=== PATIENT | male | born 1980 | race Caucasian/White ===

== ENCOUNTER 2019-06-09 14:22 | Emergency (ER) | payer OTHER, SELFPAY ==
[2019-06-09 14:24] VITALS: BP 153/83; PULSE 76; RESP 17; TEMP 36.7; O2SAT 98; BMI 31.9
--- NOTE | 2019-06-09 14:43 | US_ITS ---
STUDY: SCROTUM ULTRASOUND REASON FOR EXAM: Male, 38 years old. Right testicular pain TECHNIQUE: Ultrasound evaluation of the scrotum was performed with color Doppler and static thomas-scale imaging. COMPARISON: None. FINDINGS: RIGHT TESTICLE INTRATESTICULAR: There is a normal size of the right testicle. The right testicle measures 4.6 x 3.2 x 2.6 cm. There is a homogenous echotexture. There is normal arterial and normal venous vascularity. There is no demonstrated right testicular mass or cyst. EXTRATESTICULAR: The epididymis is normal in size. The epididymis head measures 1.3 x 0.8 cm. There is normal vascularity of the epididymis. There is a 4 mm right epididymal cyst. There is a small complex right hydrocele. There are prominent extratesticular veins consistent with a varicocele. There is no demonstrated extratesticular mass or cyst. LEFT TESTICLE INTRATESTICULAR: There is a normal size of the left testicle. The left testicle measures 4.5 x 2.9 x 2 point cm. There is a homogenous echotexture. There is normal arterial and normal venous vascularity. There is no demonstrated left testicular mass or cyst. EXTRATESTICULAR: The epididymis is normal in size. The epididymis head measures 1.1 x 1.0 cm. There is normal vascularity of the epididymis. There is a 2 mm left epididymal cyst. There is small complex left hydrocele. There are prominent extratesticular veins consistent with a varicocele. There is no demonstrated extratesticular mass or cyst. US/Testicular with Arterial Flow IMPRESSION: Normal bilateral testicles with normal Doppler flow. Small complex hydroceles bilaterally. Bilateral subcentimeter epididymal cysts. Bilateral varicoceles. Electronically Signed: Basilio Ojeda, at 16:13 EST Tel , Service support ,
[2019-06-09 14:50] VITALS: RESP 18
[2019-06-09] MEDS: Ketorolac 60 MG/2 ML Vial IM (14:53)
--- NOTE | 2019-06-09 16:32 | ED.VISSUMM ---
- ER Visit Summary Date of Service: 06/09/19 Chief Complaint: Right testicle pain History of Present Illness: The patient is a 38 M with no primary care physician. He moved here 1 month ago. He reports he has right testicle pain that began 2 months ago. Is a throbbing pain is 10-10 at worst out of 10 currently. Is worsened by standing or laying on his left side. Is relieved by sitting. He reports that he is and is sexually active, but reports he has not had sex for the past 2 months because the pain is so severe. He denies any penile discharge. No dysuria or frequency. Physical Examination: Vitals: Stable. Afebrile. General: Well-nourished and well-developed. Head: Normocephalic atraumatic. Neck: Supple, no lymphadenopathy. No JVD. Nontender. Cardiovascular: Regular rate and rhythm. No murmurs. Respiratory: No respiratory distress. Clear to auscultation bilaterally. Abdominal: Soft, nontender, nondistended, normal bowel sounds. No guarding, rebound, or peritoneal signs. : Normal uncircumcised male. He has moderate tenderness palpation to the epididymis. Small inguinal hernia on the right. No hernia on the left. He was examined while standing. Back: Nontender. Extremities: Nontender, no edema. Skin: Normal color, no rash. Neurologic: Alert and oriented ?3. Cranial nerves II through XII are intact. Normal strength and sensation. Psych: Normal affect. Test Results: Clinical Impression(s) from Imaging Studies Testicular Ultrasound 06/09/19 14:43 IMPRESSION: Normal bilateral testicles with normal Doppler flow. Small complex hydroceles bilaterally. Bilateral subcentimeter epididymal cysts. Bilateral varicoceles. Electronically Signed: Basilio Ojeda, at 16:13 EST Tel , Service support , Emergency Department Course and Treatment: Patient was given a shot of Toradol IM. He is resting comfortably. Treatment Plan: Patient will be discharged with instructions to wear supportive undergarments, take naproxen and ice the area. Follow-up with Dr. Lopez in 1 to 2 weeks if not improving. He is instructed to follow-up Dr. Sunny Arreola in 10 to 14 days for the inguinal hernia. He is also instructed to follow-up with Dr. Zaki Arreola speeder machine operator primary care physician. Return to the emergency department for any worsening symptoms. Disposition: To home in improved and stable condition. Impression: 1. Right testicle pain. This note was generated with [employer] dictation software. It may contain incorrect words, spelling, and punctuation that were not noted in review of the chart prior to signing ED Disposition - Plan for ED Patient: Disposition: Home or Assisted Living Instructions: HERNIA (Inguinal, Ventral, Umbilical), Varicocele Prescriptions: Naproxen [Naprosyn] 500 mg PO BID #20 tab Transmission Status: Received by [facility] Referrals: Sunny Arreola MD [STAFF PHYSICIAN] - 1-2 Weeks Vishal Lopez MD [STAFF PHYSICIAN] - 10-14 Days if not better Zaki Arreola III, MD [STAFF PHYSICIAN] - As Needed
== END 2019-06-09 16:48 | disposition home or self-care (01) ==
PROVIDERS: Emergency Provider Emergency Medicine
DX: N50.811 Right testicular pain (principal); I86.1 Scrotal varices; N43.3 Hydrocele, unspecified; N50.3 Cyst of epididymis; K40.90 Unilateral inguinal hernia, without obstruction or gangrene, not specified as recurrent
CPT/HCPCS: 76870; 93976; 96372; 99283

== ENCOUNTER → 2019-12-28 11:56 | Outpatient (CLI) | payer OTHER, SELFPAY ==
--- NOTE | 2019-12-28 12:00 | RAD_ITS ---
STUDY: X-RAY CHEST REASON FOR EXAM: Male, 39 years old. 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 COMPARISON: None. FINDINGS: The lungs are clear and expanded. There is no demonstrated pleural abnormality. Normal size heart. Normal mediastinum and anika. Normal visualized pulmonary arteries. Normal visualized aortic arch and descending thoracic aorta. Normal visualized thoracic spine. Normal visualized ribs, clavicles, and shoulders. There is no demonstrated abnormality of the visualized soft tissue structures of the upper abdomen. RAD/Chest PA and Lateral IMPRESSION: Normal x-ray examination of the chest. Electronically Signed: Juwan Sanchez MD at 17:13 EDT Tel , Service support ,
[2019-12-28 17:38] LABS: Anion Gap 4 (5-15); BUN 14 mg/dL (7-18); BUN/Creat Ratio 12.1 RATIO (10-20); Calcium,Total 9.2 mg/dL (8.5-10.1); Chloride 106 mmol/L (98-107); Cholesterol 183 mg/dL (200); Creatinine, Serum 1.16 mg/dL (0.70-1.30); EST Glomerular Filtration Rate 74 mL/min (>60); Est Glom Filt Rate - Afr Amer 89 mL/min (>60); Glucose 85 mg/dL (74-106); High Density Lipoprotein 36 mg/dL; Potassium 4.3 mmol/L (3.5-5.1); Sodium Level 138 mmol/L (136-145); Triglycerides 151 mg/dL; Very Low Density Lipoprotein 30 mg/dL (5-40)
== END ==
PROVIDERS: PCP Family Medicine; Referring Provider Family Medicine; Visit Provider Family Medicine
DX: R05 Cough (principal); Z13.1 Encounter for screening for diabetes mellitus; Z13.220 Encounter for screening for lipoid disorders
CPT/HCPCS: 36415; 71046; 80048; 80061

== ENCOUNTER → 2020-02-10 12:03 | Outpatient (CLI) | payer OTHER, SELFPAY ==
--- NOTE | 2020-02-10 12:30 | RAD_ITS ---
STUDY: X-RAY - PELVIS AND LEFT HIP REASON FOR EXAM: Male, 39 years old. SCIATIC PAIN BILATERAL LEGS, HX OF LUMBAR LAMINECTOMY AND CHRONIC LOW BACK PAIN TECHNIQUE: 3 views of the pelvis and hip. COMPARISON: None. FINDINGS: There is a non-specific bowel gas pattern. There are calcified phleboliths. Normal bilateral iliac wings, sacroiliac joints and visualized sacrum. Normal bilateral superior and inferior pubic rami. Normal pubic symphysis. Normal bilateral ischial tuberosities. Normal visualized femoral head. Normal acetabulum. Normal hip joint. Prior laminectomy in the lower lumbar spine. RAD/HIP, UNI W/ Pelvis 2-3 Views IMPRESSION: No acute abnormalities. Electronically Signed: Eloy Armstrong, at 12:38 EDT , Service support ,
== END ==
PROVIDERS: PCP Family Medicine; Visit Provider Nurse Practitioner Family
DX: M46.96 Unspecified inflammatory spondylopathy, lumbar region (principal); M51.17 Intervertebral disc disorders with radiculopathy, lumbosacral region; M47.27 Other spondylosis with radiculopathy, lumbosacral region; M96.1 Postlaminectomy syndrome, not elsewhere classified; M48.07 Spinal stenosis, lumbosacral region
CPT/HCPCS: 73502

== ENCOUNTER 2020-05-02 16:01 | Emergency (ER) | payer OTHER, SELFPAY ==
[2020-05-02 16:02] VITALS: BP 150/93; PULSE 83; RESP 16; TEMP 35.7; O2SAT 99; BMI 31.8
--- NOTE | 2020-05-02 16:46 | ED.VISSUMM ---
- ER Visit Summary Date of Service: 05/02/20 Chief Complaint: Lump in left axilla History of Present Illness: The patient is a 39 M who presents with a painful lump in his left axilla for the past 2 weeks. Patient states it is gradually gotten worse. Patient denies any redness. Patient states his pain is constant dull and throbbing but is sharp whenever he adducts his left shoulder. Patient states it is better whenever he abducts his left shoulder. Patient admits to an episode of subjective chills and shaking last night. Patient denies any fevers. Patient states the pain does radiate into his left pectoral area. Patient denies any shortness of breath. Patient denies any nausea or vomiting. Patient denies any other symptoms. Physical Examination: Vital signs are stable. Patient is afebrile. Patient is in no acute distress. There is some tenderness over the left axilla. There is tender left axillary adenopathy. There is no erythema. There is no fluctuance. There is no discharge or drainage. There is good range of motion of the left shoulder. Radial pulses are equal bilaterally. There are no sensory deficits noted. Heart was regular rate and rhythm. Lungs are clear and equal bilaterally. Cranial nerves II through XII are intact. There are no focal motor or sensory deficits. Emergency Department Course and Treatment: There is no evidence of any abscess formation that needs incision and drainage at this time. Patient was advised that this is most likely lymphadenitis. Patient was given a prescription for Keflex. Patient was instructed to follow-up with his primary care physician in 5 to 7 days. Patient was instructed to continue Tylenol or ibuprofen as needed for pain. Patient understood and was agreeable with the plan. All questions were answered. Disposition: Discharge home Impression: 1. Left axillary lymphadenitis This note was generated with [employer] dictation software. It may contain incorrect words, spelling, and punctuation that were not noted in review of the chart prior to signing ED Disposition - Plan for ED Patient: Disposition: Home or Assisted Living Diagnosis: Axillary lymphadenitis Instructions: ED ADENITIS Cervical Abx Tx Prescriptions: Cephalexin [Keflex] 500 mg PO Q6 #40 cap Prescription Printed Referrals: Feliciano Crowell MD [Primary Care Provider] - 5-7 Days
[2020-05-02 17:35] VITALS: RESP 17
== END 2020-05-02 17:36 | disposition home or self-care (01) ==
LOC: ED 17:11
PROVIDERS: Emergency Provider Emergency Medicine; PCP Family Medicine
DX: I88.9 Nonspecific lymphadenitis, unspecified (principal)
CPT/HCPCS: 99282

== ENCOUNTER 2020-05-06 16:37 | Emergency (ER) | payer OTHER, SELFPAY ==
[2020-05-06 16:38] VITALS: BP 146/66; PULSE 91; RESP 16; TEMP 37.1; O2SAT 98; BMI 31.9
--- NOTE | 2020-05-06 17:17 | ED.DCSUM_ITS ---
- ER Visit Summary Date of Service: 05/06/20 Chief Complaint: Left arm pain History of Present Illness: The patient is a [address] Crowell. Patient reports that proximately 3 weeks ago he noticed a small wound to his left wrist. He does not know any trauma. He does not believe that there is a foreign body present. He was seen in the emergency department 3 days ago for a swelling in his axilla and was placed on Keflex. He reports that swelling has improved. 2 days ago patient reports that he had approximately a tablespoon of pus drained from his wrist. No foreign body returned and his pain resolved. That area is much improved. However, states that over the past 2 days he now is experiencing pain in the medial left forearm and arm that radiates up into his axilla and into the left chest. He has had chills, but no fever. He reports that arm feels weaker than the other side. Physical Examination: Vitals: Stable. Afebrile. General: Well-nourished and well-developed. Head: Normocephalic atraumatic. Neck: Supple, no lymphadenopathy. No JVD. Nontender. Cardiovascular: Regular rate and rhythm. No murmurs. Respiratory: No respiratory distress. Clear to auscultation bilaterally. Abdominal: Soft, nontender, nondistended, normal bowel sounds. No guarding, rebound, or peritoneal signs. Back: Nontender. Extremities: 2 mm wound to the anterior side of his left wrist with no induration or fluctuance. There is minimal erythema. There is minimal tenderness to palpation. He does have mild tenderness palpation that extends proximally up into his axilla. There is no lymphangitic spread. There is no erythema or induration here. He has a 2 cm palpable freely mobile lymph node in his left axilla that is moderately tender to palpation. Again there is no erythema, induration, or fluctuance here. Skin: Normal color, no rash. Neurologic: Alert and oriented ?3. Cranial nerves II through XII are intact. Normal strength and sensation. Psych: Normal affect. Test Results: CBC is normal. Chem-7 is normal. Emergency Department Course and Treatment: I had a prolonged discussion with the patient that I suspect that the infection that he had in his wrist draining is the reason that his pain there has improved and that his lymphadenopathy is improved. However, given that pus drained from this it is most likely MRSA and not covered by Keflex. He had an IV placed and was given a dose of vancomycin IV. He refused pain medications. Treatment Plan: Patient will be discharged on doxycycline. Given a prescription for 10 [place] for pain. Follow-up his primary care physician in 3 to 5 days for another exam. Return to the emergency department for any worsening symptoms. Disposition: To home in improved and stable condition. Impression: 1. Left wrist abscess, drained spontaneously. 2. Left axillary lymphadenopathy. This note was generated with [employer] dictation software. It may contain incorrect words, spelling, and punctuation that were not noted in review of the chart prior to signing ED Disposition - Plan for ED Patient: Instructions: ED Abscess Antibiotic Treatment Only Prescriptions: Doxycycline 100 mg PO BID #14 capsule Hydrocodone Bitart/Apap 5-325 [[place] 5MG-325MG] 1 tablet PO Q4H PRN PRN 2 Days #10 tablet PRN Reason: Pain Referrals: Feliciano Crowell MD [Primary Care Provider] - 3-5 Days
[2020-05-06 17:39] LABS: Basophil# 0.07 X10^3/uL; Eosinophil# 0.13 X10^3/uL; Eosinophils% 1.8 % (0-5); Hematocrit 40.5 % (40-54); Lymphocyte % 31.9 % (19-41); Mean Corp Hgb Conc 34.6 g/dL (32-36); Mean Corpuscular Hgb 29.6 pg (27.0-32.0); Mean Corpuscular Volume 85.6 fL (80-94); Mean Platelet Vol. 8.7 fl (6.2-12.0); Monocyte% 9.7 % (0-10); NRBC Flagged by Analyzer 0 % (0-5); Neutrophil # 3.98 X10^3/uL (2.7-7.7); Platelet Count 231 K/mm3 (150-450); RBC Distribution Width CV 12.1 % (11.6-14.6); RBC Distribution Width SD 37.5 fl (35.1-43.9); Red Blood Count 4.73 M/mm3 (4.6-6.2); White Blood Count 7.2 K/mm3 (4.4-11.0)
[2020-05-06 17:52] LABS: Anion Gap 5 (5-15); BUN 11 mg/dL (7-18); BUN/Creat Ratio 9.7 RATIO (10-20); Calcium,Total 8.6 mg/dL (8.5-10.1); Chloride 103 mmol/L (98-107); Creatinine, Serum 1.13 mg/dL (0.70-1.30); EST Glomerular Filtration Rate 76 mL/min (>60); Est Glom Filt Rate - Afr Amer 92 mL/min (>60); Estimated Creatinine Clearance 77.63 ml/min; Glucose 82 mg/dL (74-106); Potassium 4.3 mmol/L (3.5-5.1); Sodium Level 137 mmol/L (136-145)
[2020-05-06 18:38] VITALS: BP 147/83; PULSE 85; RESP 17; O2SAT 98
== END 2020-05-06 19:59 | disposition home or self-care (01) ==
PROVIDERS: Emergency Provider Emergency Medicine; PCP Family Medicine
DX: L02.414 Cutaneous abscess of left upper limb (principal); R59.0 Localized enlarged lymph nodes
CPT/HCPCS: 80048; 85025; 87040; 96365; 96366; 99283; J7050; A4216

== ENCOUNTER → 2020-05-10 10:51 | Outpatient (CLI) | payer OTHER, SELFPAY ==
[2020-05-06 16:38] VITALS: BMI 31.9
--- NOTE | 2020-05-10 10:55 | CT_ITS ---
STUDY: CT CHEST WITH CONTRAST REASON FOR EXAM: Male, 39 years old. LEFT AXILLARY LYMPHADENITIS X THREE WEEKS WITH BURNING DOWN ARM RADIATION DOSAGE (If Supplied By Facility): CTDIvol = ( 14.62 ) mGy, DLP = ( 636.55 ) mGycm TECHNIQUE: Transaxial imaging was performed following intravenous administration of 100 ML ISOVUE 300. Multiplanar coronal and sagittal images were reformatted. Individualized dose optimization techniques were used for this CT. COMPARISON: None. FINDINGS: There is a dominant 3 cm x 3.1 cm lymph node in the left axillary region corresponding to the palpable abnormality. Increased markings are seen surrounding the lymph nodes suggestive of possible inflammatory changes. There are several smaller lymph nodes in the left axillary region as well. Mild degree of dependent bibasilar atelectasis. There is no demonstrated pleural abnormality. Normal heart and pericardium. Normal mediastinum. Normal hilar regions. Normal enhanced pulmonary arteries. Normal aorta arch and descending thoracic aorta. There are degenerative changes of the thoracic spine. Small hiatal hernia. CT/Chest WITH Contrast IMPRESSION: Left axillary adenopathy with a dominant lymph node measuring 3 cm by 3.1 cm. Increased markings are seen surrounding the dominant lymph node suggestive of possible inflammatory causes. Electronically Signed: Eloy Armstrong, at 11:29 EST , Service support ,
== END ==
PROVIDERS: PCP Family Medicine; Referring Provider Family Medicine; Visit Provider Family Medicine
DX: I88.9 Nonspecific lymphadenitis, unspecified (principal)
CPT/HCPCS: 71260; Q9967

== ENCOUNTER → 2020-05-15 08:05 | Outpatient (CLI) | payer OTHER, SELFPAY ==
[2020-05-15] VITALS (9 sets, daily range): BP systolic 106–124; BP diastolic 71–81; PULSE 65–72; RESP 12–19; TEMP 36.9; O2SAT 92–99; BMI 31.9
--- NOTE | 2020-05-15 | IMM_PTH ---
PATIENT: SYLVIA AUSTIN LOC: CT U#:[id number] AGE/SX: 44/M ROOM: RE05/15/[address]: Dr. Damon Leroy MD : 1980 BED: DIS: SPEC #: [id number] RECD: 05/16/20 09:47 STATUS: MALINA REQ #: [id number] S[place]: 05/15/20 00:[address]: Damon Leroy DEPT: IMMUNOHISTOCHEMISTRY RECD BY: Ioana Deshpande ENTERED: 05/16/20 09:49 SP TYPE: IMMUNO OTHR DR: MD Dr. Feliciano Schroeder MD Tissues: Axilla, NOS Procedures: BCL-2 (add) BCL-6 (add) CD10 (add) CD20 (add) CD23 (add) CD43 (add) CD45 (add) CD5 (add) CD79A (add) CK8 (add) CYCLIN (add) KI-67 (add) Pankeratin (add) CD3 (initial) PHYSICIAN & [place] [phone] SPECIMEN INFORMATION: Tissue Source: Left axilla mass Clinical Info: Left axilla mass Specimen Number: [id number] CPT code: 86400, 82560 x13 METHODOLOGY: Deparaffinized sections of prefer/formalin-fixed tissue or PAP/DQ stained slides are incubated with monoclonal/polyclonal antibodies/oligonucleotide probes. Localization is made via biotin free immunoperoxidase method. Appropriate controls are performed and reacted as expected. Results on target cell population are indicated in the following table: RESULTS: ANTIBODY / CLONE RESULT CD3 (PS1) positive CD5 (SP10) positive CD20 (L26) positive CD43 (L60) positive CD45 (RP2/18) positive CD79a (11E3) positive CD10 (56C6) positive (germinal center) CD23 (1B12) positive (germinal center) BCL-2 (bcl-2/100/D5) positive (germinal center) BCL-6 (YH933I/A8) positive (germinal center) Cyclin D1/BCL-1 (SP4) negative Ki-67 (30-9) positive, low (high in germinal center) AE1-3 (AE1/AE3/PCK26) negative CK8 (12edgnT13) negative These tests were developed and their performance characteristics determined by [facility]. They may not have been cleared or approved by the U.S. Food and Drug Administration. The FDA has determined that such clearance or approval is not necessary. The above immunohistochemical/dualISH markers are ordered and reviewed by the Pathologist. INTERPRETATION: Left axilla mass, CT-guided biopsy: Benign lymph node tissue negative for lymphoma. Negative for malignancy SJ:spencer 05/17/2020
[2020-05-15 08:33] LABS: International Normalized Ratio 1.3; Prothrombin Time (Protime)PT. 15.9 SECONDS (11.7-14.9)
[2020-05-15 08:34] LABS: Partial Thromboplast Time 30.3 Seconds (24.1-36.2)
--- NOTE | 2020-05-15 09:14 | CT_ITS ---
PROCEDURE: CT GUIDED biopsy of a left axillary lymph node. DATE: 05/15/2020. INDICATION: Male, 39 years old. Painful left axillary lymphadenopathy. PHYSICIAN: Eloy Armstrong M.D. RADIATION DOSAGE (If Supplied By Facility): CTDIvol = ( 18 ) mGy, DLP = ( 597.91 ) mGycm. Individualized dose optimization techniques were utilized. PROCEDURE: The risks, benefits, and alternatives to the procedure were explained to the patient. The specific risk of hemorrhage requiring further treatment or intervention was detailed and accepted. Follow-up instructions were discussed with the patient as well. Written informed consent was obtained. The patient was brought into the CT suite and placed in the supine position. . An appropriate entry site was identified. The overlying skin was prepped and draped in the usual sterile fashion. 1% lidocaine was administered subcutaneously for local anesthesia. Conscious sedation was performed. The patient received 2 mg of VERSED and 50 mcg of FENTANYL intravenously. Conscious sedation started at 9:24 AM and terminated at 9:46 AM. The patient was independently monitored by department nurse. Under CT guidance, a total of 5 passes were performed utilizing a 18-gauge core biopsy needle system. 6 cc of blood-tinged purulent material was aspirated. The specimens were then placed in the appropriate fluid and transported to the laboratory for analysis. Hemostasis was obtained. The patient tolerated the procedure well without immediate complications. CT/Biopsy/Inj or Needle Placement IMPRESSION: Successful CT guided biopsy of the left axillary lymph node, as described above. Conscious sedation protocol was followed. Electronically Signed: Eloy Armstrong MD at 10:03 EST , Service support ,
[2020-05-15] MEDS: Midazolam 2 MG/2 ML Syringe IV (09:23)
[2020-05-15] MEDS: fentaNYL 100 MCG/2 ML Ampul IV (09:24)
--- NOTE | 2020-05-15 09:40 | FLU_PTH ---
PATIENT: SYLVIA AUSTIN LOC: [place] U#:[id number] AGE/SX: 44/M ROOM: RE05/15/[address]: Dr. Damon Leroy MD : 1980 BED: DIS: SPEC #: [id number] RECD: 05/15/20 10:30 STATUS: MALINA REQ #: [id number] [place]: 05/15/20 09:[address]: Damon Leroy DEPT: CYTOLOGY RECD BY: Arminda Bell ENTERED: 05/15/20 12:31 SP TYPE: Fluid OTHR DR: MD Dr. Feliciano Schroeder MD Tissues: Lymph node, NOS Procedures: Special Stain Group II Special Stain Group I Surgery Specimen Level IV AFB Stain (control) GMS Stain (control) Cytospin Fluid HEADER OPERATION: CT-guided biopsy left axilla PRE-OP DIAGNOSIS: Left axilla mass TISSUE SUBMITTED: Left axilla mass fluid for cytology, 18-gauge DIAGNOSIS CYTOLOGY Left axilla mass fluid, CT-guided aspiration (cytospin and cell block): Acute inflammation, consistent with abscess formation. Special stains for acid fast bacilli and fungi are negative for organisms; matched controls are appropriate. See comment. DAVE:spencer 05/16/20 COMMENT Please make reference to corresponding surgical specimen ([id number]) left axilla mass, CT-guided core biopsy with diagnosis of lymph node tissue, negative for lymphoma or malignancy and focal area suggestive of granuloma formation. Case has been reviewed in consultation with Dr. Balderas who concurs with the above diagnosis. IDC:AM CYTOLOGY STUDY Slides are reviewed. CYTOLOGY GROSS Received is 3 ml of red-briggs thick, mucoidy fluid labeled with the patient's name and and designated per the requisition as left axilla mass. Submitted for cytology preparation including cell block. / spencer 05/15/2020 TC:2 CPT: 37421, 97652
--- NOTE | 2020-05-15 09:40 | ASPIGT_PTH ---
PATIENT: SYLVIA AUSTIN LOC: [place] U#:[id number] AGE/SX: 44/M ROOM: RE05/15/[address]: Dr. Damon Leroy MD : 1980 BED: DIS: SPEC #: [id number] RECD: 05/15/20 10:30 STATUS: MALINA REQ #: [id number] [place]: 05/15/20 09:[address]: Damon Leroy DEPT: SURGICAL PATHOLOGY RECD BY: Arminda Bell ENTERED: 05/15/20 12:29 SP TYPE: ASP RAD OTHR DR: MD Dr. Feliciano Schroeder MD Tissues: Lymph node, NOS Procedures: FNA Specimen Adequacy Special Stain Group II Surgery Specimen Level IV Imprint (control) HEADER OPERATION: CT-guided biopsy, left axilla PRE-OP DIAGNOSIS: Left axilla mass TISSUE SUBMITTED: Left axilla mass, 18 gauge MICROSCOPIC DIAGNOSIS Left axilla mass, CT-guided core biopsy: Lymph node tissue, negative for lymphoma or malignancy. Focal area suggestive of granuloma formation. Special stains for acid fast bacilli and fungi are negative for organisms; matched controls are appropriate. Flow cytometry studies from [facility] shows no evidence of a B-cell or T-cell lymphoma. Please see complete report in patient's EMR. See comment. SJ:spencer 05/17/2020 COMMENT The specimen is evaluated at the time of biopsy by Dr. Urrutia. Immediate Evaluation = Lymphocytes are noted. Immunohistochemistry ([id number]) supports the above diagnosis. Please also make reference to corresponding cytology specimen ([id number]), left axilla mass fluid with diagnosis of acute inflammation, consistent with abscess formation. Case has been reviewed in consultation with Dr. Balderas who concurs with the above diagnosis. IDC:AM MICROSCOPIC DESCRIPTION Slides are reviewed. GROSS DESCRIPTION Received in fixative is one container labeled with the patient's name and designated left axilla mass, CT-guided core biopsy. The specimen consists of multiple irregular fragments of briggs soft tissue that in aggregate measure 1 x 0.3 x 0.1 cm. The specimen is totally submitted in one cassette. One core is submitted for flow cytometry studies. One touch imprint is prepared at the time of core biopsy. / DAVE:spencer 05/15/20 TC:5 CPT: 23972, 76105, 29479 x2
== END ==
PROVIDERS: PCP Family Medicine; Referring Provider Surgery; Visit Provider Surgery
DX: R22.32 Localized swelling, mass and lump, left upper limb (principal)
CPT/HCPCS: 38505; 36415; 77012; 85610; 85730; 87070; 87075; 87205; 88108; 88161; 88172; 88305; 88312; 88313; 88341; 88342; 99155; 99156; J7040; A4216

== ENCOUNTER 2021-06-28 12:49 | Outpatient (CLI) | payer OTHER, SELFPAY ==
--- NOTE | 2021-06-28 12:53 | RAD_ITS ---
STUDY: X-RAY - LEFT HAND REASON FOR EXAM: Male, 40 years old. Pain. Injury to the hand 3 weeks ago. Persistent pain in the region of the second third metacarpals. TECHNIQUE: 3 view(s) of the hand. COMPARISON: None. FINDINGS: Normal radiocarpal articulation. Normal distal radioulnar joint. Normal visualized carpal bones. Normal carpal articulations Normal carpometacarpal articulation of the thumb. Normal second through fifth carpometacarpal joints. Normal metacarpi. Normal metacarpophalangeal joint of the thumb. Normal interphalangeal joint of the thumb. Normal proximal and distal phalanges of the thumb. Normal metacarpophalangeal joints of the second through fifth fingers. Normal proximal and distal interphalangeal joints of the second through fifth fingers. Normal phalanges of the second through fifth fingers. The soft tissue structures are unremarkable. RAD/Hand Min 3 Views IMPRESSION: No fracture or dislocation. There is no marked arthritic change. Electronically Signed: Addison Arroyo DO at 16:14 EST ,
== END 2021-06-28 23:59 | disposition home or self-care (01) ==
LOC: MTRAD 12:51
PROVIDERS: Referring Provider Family Medicine; Visit Provider Family Medicine
DX: M79.642 Pain in left hand (principal)
CPT/HCPCS: 73130

== ENCOUNTER 2021-07-08 15:49 | Emergency (ER) | payer OTHER, SELFPAY ==
[2021-07-08 15:50] VITALS: BP 155/102; PULSE 89; RESP 16; TEMP 35.9; O2SAT 97; BMI 31.0
--- NOTE | 2021-07-08 16:26 | RAD_ITS ---
HISTORY: injury. TECHNIQUE: XR Foot Min 3 Views. Number of images including paperwork: 3. COMPARISON: None. FINDINGS: OSSEOUS STRUCTURES: No acute fracture. Mineralization unremarkable. Tiny plantar calcaneal spur present. JOINT SPACES: Maintained. No dislocation. RAD/Foot min 3 Views IMPRESSION: No acute fracture or dislocation identified in the left foot. at 1654 Reported and signed by: Cee Rodriguez MD Electronically Signed: Cee Rodriguez MD at 16:53 EDT ,
--- NOTE | 2021-07-08 16:27 | ED.VIS.LOWEX ---
HPI History of Present Illness Chief Complaint: Lower Extremity Injury Informant: patient Onset/Context/Timing Onset: Hours (1) Context: Sudden Onset Timing: Continuous Quality of Pain: Throbbing Location: Left ankle Current Severity: Moderate Maximum Severity: Severe Worsened by: Walking Relieved by: Remaining still Associated Symptoms Associated Symptoms: Negative for Parasthesia, Weakness and Loss of Funtion Narrative Narrative: Patient states he was going down a step and accidentally rolled his foot, he describes an inversion/hyper plantarflexion injury, pain is at the lateral aspect of the left ankle. Able to walk but hobbling with pain. [facility] Medical History Axillary lymphadenitis History of back problems Mass of left axilla Allergy/AdvReac Type Severity Reaction Status Date / Time No Known Allergies Allergy Verified 07/08/21 15:50 Family History Mother Asthma Father Diabetes Surgical History history o axillary biopsy (~04/2020) History of spinal surgery Social History Smoking Status: Never smoker ROS ROS ED Constitutional Constitutional ED: Denies chills or fever(s) Musculoskeletal Musculoskeletal: Reports extremity pain; Denies neck pain Integumentary Denies Abrasions, rash or wounds Neurologic Neurologic: Denies paresthesias or weakness EXAM Physical Exam Const Vital Signs: 07/08/21 15:50 Temperature 96.7 F L Temperature Source Temporal Pulse Rate 89 Respiratory Rate 16 Blood Pressure 155/102 H Blood Pressure Mean 119 Pulse Ox 97 Oxygen Delivery Method Room Air Positive well nourished and well developed General Appearance ED: well developed and NAD Neck full ROM and supple Back/Spine normal ROM and normal to inspection Extremity full ROM Extremity Narrative: Tenderness and swelling to the left lateral malleolus as well as the base of the fifth tarsal. No other foot tenderness. No medial malleolus tenderness no deformities. No proximal fibular tenderness. Neuro oriented x3, no focal motor deficits and no sensory deficits noted Sensorium / Orientation: alert Psych mental status grossly normal and thought process normal Skin no wounds Skin Narrative: Skin intact left lower extremity Rashes: no rashes MDM MDM MDM Narrative Medical decision making narrative: My interpretation, 3 view x-ray series of the left foot and three-view x-ray series of the left ankle both are negative for any acute fracture or dislocation. Radiology in agreement. Patient treated to sprain, he will be offered Aircast, crutches, anti-inflammatories all if needed. Follow-up advised. Radiography Diagnostic Testing: Clinical Impression(s) from Imaging Studies Foot X-Ray 07/08/21 16:26 IMPRESSION: No acute fracture or dislocation identified in the left foot. at 1654 Reported and signed by: Cee Rodriguez MD Electronically Signed: Cee Rodriguez MD at 16:53 EDT , Ankle X-Ray 07/08/21 16:35 IMPRESSION: No acute fracture or dislocation identified in the left ankle. at 1653 Reported and signed by: Cee Rodriguez MD Electronically Signed: Cee Rodriguez MD at 16:52 EDT , Discharge Plan Triage Chief Complaint: Lower Extremity Injury ED Provider: Gen Diaz Dx/Rx/DC Orders Clinical Impression: Left ankle sprain Instructions: ED Ankle Sprain (Adult) Primary Care Provider: Care Physician,No Primary Referrals: Doctor,Your [STAFF PHYSICIAN] - 10-14 Days if not better Disposition Disposition: Home, Self Care
--- NOTE | 2021-07-08 16:35 | RAD_ITS ---
HISTORY: injury. TECHNIQUE: XR Ankle Min 3 Views. Number of images including paperwork: 3. COMPARISON: None. FINDINGS: OSSEOUS STRUCTURES: No acute fracture. Ossification center noted at the fifth metatarsal base. Small spur at the medial malleolus. Smooth talar dome. Mineralization unremarkable. JOINT SPACES: Ankle mortise maintained. No dislocation. SOFT TISSUES: Diffuse soft tissue swelling with mild joint effusion. RAD/Ankle min 3 Views IMPRESSION: No acute fracture or dislocation identified in the left ankle. at 1653 Reported and signed by: Cee Rodriguez MD Electronically Signed: Cee Rodriguez MD at 16:52 EDT ,
[2021-07-08] MEDS: Naproxen 250 MG Tablet 500 MG PO (17:16)
[2021-07-08] MEDS: traMADol 50 MG Tablet 100 MG PO (17:16)
[2021-07-08 17:23] VITALS: RESP 16
== END 2021-07-08 17:23 | disposition home or self-care (01) ==
PROVIDERS: Emergency Provider Emergency Medicine; Visit Provider Emergency Medicine
DX: S93.402A Sprain of unspecified ligament of left ankle, initial encounter (principal); X50.1XXA Overexertion from prolonged static or awkward postures, initial encounter; Y93.9 Activity, unspecified; Y92.9 Unspecified place or not applicable
CPT/HCPCS: 73610; 73630; 99284

== ENCOUNTER → 2021-12-10 | Outpatient (CLI) | payer OTHER, SELFPAY ==
--- NOTE | 2021-12-10 14:16 | RAD_ITS ---
STUDY: X-RAY - RIGHT ELBOW REASON FOR EXAM: Male, 41 years old. INJRY TECHNIQUE: 3 view(s) of the elbow. COMPARISON: None. FINDINGS: Normal visualized humerus, radius and ulna. Normal radiocapitellar and ulnotrochlear articulations. The soft tissue structures are unremarkable. RAD/Elbow min 3 Views IMPRESSION: Normal x-ray examination of the elbow. Electronically Signed: Amilcar Hernandez MD at 14:36 EDT ,
[2021-12-10 17:57] LABS: Absolute Lymphocyte Count 1.81 X10^3/uL (0.83-4.51); Basophil# 0.06 X10^3/uL; Basophil% 0.9 % (0-1); Eosinophil# 0.05 X10^3/uL; Eosinophils% 0.8 % (0-5); Hematocrit 41.4 % (40-54); Lymphocyte # 1.81 X10^3/ul (0.83-4.51); Lymphocyte % 28.6 % (19-41); Mean Corp Hgb Conc 33.8 g/dL (32-36); Mean Corpuscular Hgb 28.7 pg (27.0-32.0); Mean Platelet Vol. 9.4 fl (6.2-12.0); Monocyte# 0.42 X10^3/uL; Monocyte% 6.6 % (0-10); NRBC Flagged by Analyzer 0 % (0-5); Neutrophil # 3.96 X10^3/uL (2.7-7.7); Neutrophil % 62.6 % (47-70); Platelet Count 261 K/mm3 (150-450); Red Blood Count 4.87 M/mm3 (4.6-6.2); White Blood Count 6.3 K/mm3 (4.4-11.0)
[2021-12-10 18:34] LABS: ALB/GLOB Ratio 1.1 RATIO (0.9-2.4); AST(SGOT) 19 U/L (15-37); Alanine Aminotransfer ALT/SGPT 50 U/L (16-61); Albumin, Serum 3.6 g/dL (3.2-5.0); Alkaline Phosphatase 47 U/L (45-117); Anion Gap 6 (5-15); BUN 13 mg/dL (7-18); BUN/Creat Ratio 10.7 RATIO (10-20); Calcium,Total 8.7 mg/dL (8.5-10.1); Chloride 110 mmol/L (98-107); Cholesterol 153 mg/dL (200); Creatinine, Serum 1.21 mg/dL (0.70-1.30); EST Glomerular Filtration Rate 70 mL/min (>60); Est Glom Filt Rate - Afr Amer 84 mL/min (>60); Globulin 3.4 g/dL (2.2-4.2); Glucose 104 mg/dL (74-106); High Density Lipoprotein 32 mg/dL; Potassium 3.7 mmol/L (3.5-5.1); Sodium Level 140 mmol/L (136-145); Thyroid Stim Hormone (TSH) 1.32 uIU/mL (0.358-3.74); Triglycerides 168 mg/dL; Very Low Density Lipoprotein 34 mg/dL (5-40)
[2021-12-10 18:41] LABS: Hemoglobin A1c 5.4 % (3.8-5.6)
== END | disposition home or self-care (01) ==
LOC: MTLAB 14:14
PROVIDERS: PCP Family Medicine; Referring Provider Nurse Practitioner Family; Visit Provider Nurse Practitioner Family
DX: M25.521 Pain in right elbow (principal); R07.89 Other chest pain; E66.9 Obesity, unspecified
CPT/HCPCS: 36415; 73080; 80053; 80061; 83036; 84443; 85025

== ENCOUNTER → 2021-12-17 | Outpatient (CLI) | payer OTHER, SELFPAY ==
--- NOTE | 2021-12-17 17:56 | CT_ITS ---
STUDY: CT ABDOMEN AND PELVIS WITH CONTRAST REASON FOR EXAM: Male, 41 years old. Diffuse abdominal pain RADIATION DOSAGE (If Supplied By Facility): CTDIvol = ( 15.88 ) mGy, DLP = ( 1168.92 ) mGycm TECHNIQUE: Transaxial images were obtained from the dome of the diaphragm to the symphysis pubis with oral contrast. Oral and amp; IV Readi-CAT and amp; 100mL Isovue-370 was administered. Sagittal and coronal images were reconstructed. Individualized dose optimization techniques were used for this CT. COMPARISON: None. FINDINGS: The visualized lung bases are unremarkable. The visualized portions of the heart are within normal limits. There is decreased attenuation of the liver consistent with steatosis. Normal gallbladder and extrahepatic biliary system. Normal spleen. Normal pancreas. Normal bilateral adrenal glands. Normal right kidney. Normal left kidney. Normal visualized stomach. Normal small intestine. There are a few scattered colonic diverticula, no CT evidence of acute diverticulitis. There is non-visualization of the appendix. Normal abdominal aorta. Normal inferior vena cava. Normal retroperitoneum. Normal urinary bladder. Small fat-containing left inguinal hernia. Normal osseous structures. CT/Abdomen/Pelvis WITH Contrast IMPRESSION: Fatty infiltration of the liver, no discrete lesion Scattered colonic diverticula, no CT evidence of acute diverticulitis No free intraperitoneal fluid, air, or suspicious adenopathy Electronically Signed: Abel Fung MD at 8:40 EDT ,
== END | disposition home or self-care (01) ==
LOC: CT 17:54
PROVIDERS: PCP Family Medicine; Visit Provider Surgery
DX: R10.9 Unspecified abdominal pain (principal)
CPT/HCPCS: 74177; Q9967

== ENCOUNTER 2022-01-28 09:09 | Day surgery (SDC) | payer OTHER, SELFPAY ==
[2022-01-28] VITALS (7 sets, daily range): BP systolic 97–136; BP diastolic 71–98; PULSE 75–110; RESP 16; TEMP 36.1–36.5; O2SAT 92–97; BMI 32.3
--- NOTE | 2022-01-28 | HERN_PTH ---
PATIENT: SYLVIA AUSTIN LOC: [facility] U#:[id number] AGE/SX: 41/M ROOM: RE01/28/[address]: Dr. Sunny Arreola MD : 1980 BED: DIS: 01/28/2022 SPEC #: [id number] RECD: 01/28/22 13:58 STATUS: MALINA BOWER #: [id number] [place]: 01/28/22 00:[address]: Sunny Arreola DEPT: SURGICAL PATHOLOGY RECD BY: Rashel Riddle ENTERED: 01/29/22 08:35 SP TYPE: Hernia OTHR DR: Dr. Jose Ramon Blancas MD Tissues: HERNIA Procedures: Surgery Specimen Level II HEADER OPERATION: Laparoscopic inguinal hernia repair with mesh, umbilical hernia repair PRE-OP DIAGNOSIS: Umbilical hernia, left inguinal hernia, gangrene, abdominal pain TISSUE SUBMITTED: Hernia sac MICROSCOPIC DIAGNOSIS Hernia sac, herniorrhaphy: Fibrosis and minimal chronic inflammation. AM:spencer 01/30/2022 MICROSCOPIC DESCRIPTION Slides are reviewed. GROSS DESCRIPTION Received in fixative is one container labeled with the patient's name and designated hernia sac. The specimen consists of a piece of adipose tissue measuring 2.5 x 2.5 x 1 cm. No mass lesion is identified. Flask Pusher sections are submitted in one cassette. / SJ:spencer 01/29/2022 TC:5 [facility]: [id number]
[2022-01-28] MEDS: Lactated Ringers 1,000 ML 15 ML IV (09:54)
--- NOTE | 2022-01-28 10:34 | PCM.HP.BLA ---
History and Physical Date of Admission: 01/28/22 Visit Reasons:?UMBILICAL HERNIA Chief Complaint: umbilical hernia Irrigation Manager Required: No Is patient in pain?: No Allergies No Known Allergies Allergy (Verified 12/10/21 13:13) Medications NK? 12/10/21 [History Confirmed 12/10/21] PFSH Medical History? Axillary lymphadenitis History of back problems Mass of left axilla Surgical History? history o axillary biopsy (~04/2020) History of spinal surgery Family History? Mother AsthmaFather Diabetes Social History? Smoking Status:? Never smoker HPI HPI HPI: SYLVIA AUSTIN, is a 41 M who presents to the office today for surgical consultation regarding an umbilical hernia.? The patient is referred by Dr. Jose Ramon Blancas and a written copy my surgical consult recommendations will return to him.? On clinical examination the patient was felt to have an umbilical hernia potentially aggravating abdominal pain of which he is complaining.? The patient states that he has had his umbilical hernia for at least a year.? He has had intermittent chronic pain of his right proximal scrotal area.? Apparently June 09, 2019 was seen at the [facility] emergency room.? A scrotal ultrasound was obtained demonstrating small complex bilateral hydroceles and small bilateral epididymal cysts and bilateral varicoceles..? He says he was treated with antibiotics.? He still has intermittent right proximal scrotal groin pain.? He is concerned because of left lower quadrant abdominal pain.? He states he can literally see the bowel moving underneath the skin.? He claims that it can bulge out and then receded.? But he points to very high in the left groin area and not down at a typical hernia spot. He states he has GERD for 10 to 15 years.? Some trouble swallowing peanuts.? Claims she had a colonoscopy February 2015.? Does not know whether he had a upper endoscopy at that time.? It is his hernias that are of most interest currently. He has had 3 different operations on his back.? 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 He does not do anything vigorous like that.? No tobacco use and very infrequent alcohol use.? 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 His work requires currently are less vigorous June 09, 2019 US/Testicular with Arterial Flow IMPRESSION: Normal bilateral testicles with normal Doppler flow. ? Small complex hydroceles bilaterally. ? Bilateral subcentimeter epididymal cysts. ? Bilateral varicoceles. ROS General General: No weight change, appetite, fatigue, colon cancer, breast cancer or weakness HEENT HEENT: No difficulty swallowing, eye injury, eye surgery, swollen glands or hoarseness Endo Endocrine: No thyroid disease, diabetes mellitus, thyroid cancer, Hair loss, heat intolerance or cold intolerance Skin Skin: No rash or changing moles Breast Breast: No left breast lump, right breast lump, nipple discharge, breast pain, abnormal mammogram, abnormal US or breast enlargement Musc Musculoskeletal: Yes back problems; No arthritis, rheumatoid arthritis, gout or joint pain Cardio Cardiovascular: No murmur, pacemaker, heart disease, atrial fibrillation, high blood pressure, heart attack, heart stent, palpitations, shortness of breat with exertion or chest pain Psych Psychiatric: No depression, anxiety or hearing voices Resp Respiratory: No shortness of breath, No sleep apnea, Yes cough, No COPD, No asthma, No emphysema and No wheezing Gastro Gastrointestinal: Yes abdominal pain, No nausea or vomiting, No diarrhea, No constipation, No blood in stool, No acid reflux, No hemorrhoids, No ulcers, No gallbladder problem and No black,tarry stools Renato Hematologic: No blood thinners, No blood disorders, No bleeding, No anemia and No blood clots Neuro Neurologic: No system reviewed and no additional complaints, except as documented, No as per HPI, No abnormal gait, No abnormal hearing, No abnormal movements, No abnormal speech, No behavioral changes, No burning sensations, No confusion, No convulsions, No disequilibrium, No dizziness, No localized weakness, No frequent falls, No headache(s), No lack of coordination, No loss of vision, No memory loss, No numbness, No other visual disturbances, No radicular pain, No restless legs, No sensory deficit, No syncope, No tingling, No tremor(s), No weakness and No other Exam Const General: cooperative, healthy appearing, comfortable and no acute distress [facility] Head: normal to inspection Eyes General: appearance normal, both eyes and all related structures Neck Neck: normal visual inspection Chest Chest palpation & inspection: normal inspection of the chest Resp Effort & Inspection: normal respiratory effort Auscultation: clear to auscultation bilaterally Cardio Rate: regular rate Rhythm: regular rhythm GI Palpation: soft and no hepatosplenomegaly Other: Obvious umbilical hernia.? Partially reducible.? Slightly tender to palpation.? Bowel sounds present unremarkable I do not detect a mass or tenderness in the left lower quadrant of the abdomen at the location of patient concern Other: Testicles are descended.? He complains of some slight tenderness on the right.? Right groin appears to be solid and intact I do not feel an obvious hernia.? Some very slight fullness at the external ring. Left groin has more significant evidence of a likely indirect hernia.? Seems to bulge more with straining. Musc Other: Well-healed posterior cervical incision Skin General: no rashes or lesions noted Neuro General: patient alert, patient awake and patient oriented x3 Extrem General: normal to inspection and no calf tenderness Psych Appearance: grossly normal Assessment and Plan Assessment and Plan (1) Umbilical hernia without obstruction or gangrene: ?Status:?Acute (2) Inguinal hernia of left side without obstruction or gangrene: ?Status:?Acute (3) Abdominal pain: ?Status:?Acute (4) Bilateral varicoceles: ?Status:?Acute ? ? ? Orders: Orders Abdomen/Pelvis WITH Contrast Today R10.9 - Unspecified abdominal pain ? Plan Umbilical hernia tender to reduction I have offered him an umbilical herniorrhaphy with mesh. I believe that I can detect a reducible left inguinal hernia.? However this does not seemingly correlate with exactly where the patient is complaining of movement and the feeling of pain in the left lower quadrant.? Prior to pursuing surgical intervention I recommend an abdominal pelvic CT scan to evaluate the left lower abdominal area. The patient also complains of chronic right proximal scrotal pain.? Clinically I am less clear that there is an inguinal hernia in this location.? On previous ultrasound the patient had noted bilateral varicoceles.? The right groin pain could be a subtle small inguinal hernia or varicocele in etiology.? Hopefully the imaging will help decipher. I believe the patient would be a good candidate for a laparoscopic left inguinal herniorrhaphy with mesh as well as an umbilical herniorrhaphy.? I will use the imaging to help decipher whether he actually has a right inguinal hernia as well.? He is well aware that if 1 is detected then I would recommend laparoscopically repairing that at the same time of the other 2 hernias.? He has had an opportunity to ask and have questions answered.? He is well aware there are no guarantees of success. Regarding the bilateral small hydroceles and varicoceles I advised him that typically if these require treatment that would be referral to urology.? He is aware that I do not perform those procedures. I appreciate the opportunity of assisting with the surgical care. Copy: Dr. Jose Ramon Arreola M.D., F.A.C.S Umbilical hernia as well as a symptomatic left inguinal hernia. Plan for a laparoscopic left inguinal herniorrhaphy and likely a Ventralex mesh repair of the umbilical hernia. The patient is aware of the technique, benefit, risk of alternatives. No hernia was detected on CT scan of the right groin. The patient does have some small hydroceles and varicoceles which will not be addressed at this setting. He has had an opportunity to ask and have questions answered. We will proceed as noted. Sunny Arreola M.D., F.A.C.S.
[2022-01-28] MEDS: Cefazolin 2 GM in 0.9% Normal Saline 100 ML IV (11:20)
--- NOTE | 2022-01-28 11:21 | DCINST_ITS ---
Discharge Instructions Procedure General Surgery Diet Discharge Diet: Light diet - advance as tolerated (if you have questions about your diet instructions, please talk to you doctor.) Activity Discharge Activity: May Not Drive (for 3-5 days or while taking narcotic pain medicine.) May shower in (days): 1 Lifting Restrictions: 10 pounds Dressing / Incision Call your doctor if your incision/area has: Continuous Slow Oozing, Sudden Increased Bleeding, Increased Pain/ Swelling, Increased Redness and Foul Smelling Discharge Call your doctor if you observe: Fever of 101 or Higher Suture Line Care: Avoid Pulling/Pushing and Avoid Pinching/Bending Additional Dressing/Incision Instructions:: Change or remove dressing in 4 days. Leave steri-strips in place for 1 week. Follow Up Care Please Follow Up With: Sunny Arreola MD When: Call [phone] to make an appointment to be seen in about 10 days. Test Results: Test results from this visit will be discussed in further detail at your follow- up appointment, if applicable. Discharge Plan Admission Primary Reason for Your Visit: Left inguinal hernia and umbilical hernia Attending Provider: Sunny Arreola Primary Care Provider: Jose Ramon Blancas Discharge Orders/Prescriptions Prescriptions: New hydrocodone-acetaminophen 5-325 mg tablet 1 tab PO Q6H PRN (Reason: pain) 3 Days Qty: 10 0RF Referrals / Follow Up: Jose Ramon Blancas MD [Primary Care Provider] - Disposition Disposition (needs filled in before D/C Order can be placed): Home, Self Care
--- NOTE | 2022-01-28 12:31 | PCM.OPRPT ---
Report of Operation Date of Procedure: 01/28/22 Pre-Operative Diagnosis: Symptomatic umbilical and left inguinal hernia Post-Operative Diagnosis: Symptomatic umbilical and indirect left femoral hernia with significant cord lipoma Surgery/Procedure Performed:: Laparoscopic left inguinal herniorrhaphy with extra-large Bard 3D max mesh: Lot [id number], reference [id number], expiry date 04/24/2026 Umbilical herniorrhaphy with 6.[address] mesh: Lot [id number], reference #[id number], expiry date 05/25/2023 Description of Surgical Findings:: Timeout and informed consent was obtained. 41-year-old gentleman was taken to the operating placed upon the table underwent general endotracheal intubation esthesia Ancef 2 g were given intravenously the abdomen sterilely prepped and draped 0.25% Marcaine was used as a local anesthetic throughout the procedure a total of 30 cc was used skin sites were reanesthetized a curvilinear infraumbilical incision was created sharp and blunt dissection was used to identify preperitoneal fatty tissue within a partially reducible umbilical hernia. The umbilical skin was carefully dissected free the sac was transected with contents and submitted to specimen. Preperitoneal plane was formed. 10 mm trocar was inserted and the abdomen was insufflated with CO2 to a pressure of 10 mmHg pressure. Under direct visitation 5 mm ports were placed in the right mid abdomen and left lateral abdomen. Under laparoscopic visualization a left ilioinguinal nerve block was performed with the Marcaine. The peritoneum superior and medial to the internal ring was incised and carried laterally the peritoneum completely dissected free so I's identify the direct space indirect space and femoral area. A quite sizable lobulated cord lipoma was encountered and this was carefully teased free. Where needed hemostasis was then with Hem-o-susan clips. I had good reduction of the cord lipoma and good view of the indirect defect. A extra-large left Bard 3D max mesh was placed so as to cover the defect area and there was good coverage medially directly over the hernial defect and laterally. I secured it in place with the screw strap laterally as needed only and superiorly and good coverage was achieved. The peritoneum was then approximated to itself with Hem-o-susan clips and secure strap completely obliterating access to the mesh. I will add the abdomen deflated through an antiviral valve. I placed a 6.4 cm Ventralex mesh at the umbilicus secured the tails in place with an up to 0 Nurolon. I then approximated the fascia transversely with simple sutures of 0 Nurolon incorporating the anterior aspect of the mesh. I reinsufflated and inspected the umbilical mesh and had an absolutely perfect smooth ally within the retrorectus plane with excess peritoneum around it. The abdomen was allowed to again to deflate of the CO2. Skin edges were approximate interrupted 4 Monocryl subdermal stitches. Steri-Strips Telfa OpSite dressings applied. Sponge and instrument and needle counts were reported to the surgeon to be correct. Specimen umbilical hernia sac and contents. Drains none. Blood loss minimal. The patient was taken to the recovery room in satisfactory addition without apparent complication Sunny Arreola M.D., F.A.C.S. Surgeon: Sunny Arreola Type of Anesthesia: General and Local Anesthesiologist: Eron Zelaya
[2022-01-28] MEDS: HYDROcodone Bitartrate/Apap 5/325 Tablet PO (14:38)
[2022-01-28] MEDS: Ondansetron 4 MG/2 ML Vial IV (15:33)
== END 2022-01-28 16:06 | disposition home or self-care (01) ==
LOC: SDC 09:10 → AC 09:11
PROVIDERS: PCP Family Medicine; Referring Provider Surgery; Visit Provider Surgery
PROC: (CPT 49650; principal; 2022-01-28 10:45)
DX: K40.90 Unilateral inguinal hernia, without obstruction or gangrene, not specified as recurrent (principal); K42.9 Umbilical hernia without obstruction or gangrene; I86.1 Scrotal varices; M19.90 Unspecified osteoarthritis, unspecified site; K21.9 Gastro-esophageal reflux disease without esophagitis; Z79.899 Other long term (current) drug therapy
CPT/HCPCS: 49650; 49585; 00830; 88302; C1781; J7120; J2405

== ENCOUNTER 2022-02-06 11:01 | Day surgery (SDC) | payer OTHER, SELFPAY ==
[2022-02-06 11:38] VITALS: BP 129/82; PULSE 72; RESP 16; TEMP 36.4; O2SAT 98; BMI 31.4
[2022-02-06] MEDS: Lactated Ringers 1,000 ML 15 ML IV (11:42)
--- NOTE | 2022-02-06 12:40 | PCM.HP.STD ---
HPI - General HPI Narrative SYLVIA AUSTIN, is a 41 M who presents for right elbow bursectomy and debridement. No changes to health. No questions or concerns. Consent updated. Right elbow marked. isit Reasons:?Elbow pain Chief Complaint: right elbow Is patient in pain?: Yes Pain scale (1-10): 1 Allergies No Known Allergies Allergy (Verified 12/10/21 13:13) Medications propranolol 20 mg tablet 20 mg PO 01/01/22 [History Confirmed 01/01/22] PFSH Medical History?(Updated 01/01/22 @ 09:59 by Pepe Butt MD) Abdominal pain Axillary lymphadenitis Bilateral varicoceles History of back problems Inguinal hernia of left side without obstruction or gangrene Mass of left axilla Olecranon bursitis, right elbow Umbilical hernia without obstruction or gangrene Surgical History? history o axillary biopsy (~04/2020) History of spinal surgery Family History? Mother AsthmaFather Diabetes Social History? Smoking Status:? Never smoker HPI Elbow pain Details: Parts of this documentation were recorded by a scribe, this documentation accurately reflects the service provided and the decisions made by me, Dr. Pepe Butt MD 01/01/22 0841. SYLVIA AUSTIN is a 41 year old M here today for elbow pain. Posterior. Had an injury bashed it 20 years ago, sharp pain to lean on the desk, has to move off the pressure. Feels something move around there. Swelling - no. Just know can't lean on the posterior part of the elbow. Worse with flexion. Something crackling there. RHD. WOrks in an office. Ortho Exam General General: Yes no acute distress Neurologic: Yes alert and Yes oriented x3 Psychologic: Yes reasonable and appropriate Right Wrist/Hand Motor: EPL: 5, FDP-2: 5, 1st Dorsal Interosseous: 5 and APB: 5 Sensation: Radial: I, Ulnar: I and Median: I Right Elbow Skin/Wound: Yes CDI, No eccymosis, No erythema and No Swelling ROM: Yes Flexion 0-140, Extension 0, Supination 0-90 and Pronation 0-80 Test: No Valgus Stress Test, No Varus Stress Test, No TTP Medial Epicondyle, No TTP Lateral Epicondyle, No Pain w/ resist wrist ext and No Hypothenar Atrophy Sensation: Radial: I, Ulnar: I and Median: I Motor: Elbow Extension: 5, Elbow Flexion: 5, EPL: 5, FDP-2: 5 and 1st Dorsal Interosseous: 5 ELBOW: There is pain to palpation of the posterior aspect of the right elbow.? Some very mild soft tissue swelling in that area.? I can feel some firm areas some crepitus there just in the posterior aspect of the elbow.? No pain medially or laterally.? Triceps is strong and intact with no pain along the length of the triceps. Supplemental Info STUDY: ? X-RAY - RIGHT ELBOW REASON FOR EXAM: ? Male, 41 years old.? INJRY TECHNIQUE:? 3 ? view(s) of the elbow. COMPARISON: ? None. FINDINGS: Normal visualized humerus, radius and ulna.? Normal radiocapitellar and ulnotrochlear articulations. The soft tissue structures are unremarkable. RAD/Elbow min 3 Views IMPRESSION: Normal x-ray examination of the elbow. ? Electronically Signed: Amilcar Hernandez MD at 14:36 EDT , ? There is a moderate sized olecranon osteophyte as well as some mild soft tissue calcifications in this area. Coding Level of Care Code Off vis,new,level 3 Diagnoses Elbow pain? M25.529 Olecranon bursitis, right elbow? M70.21 Assessment and Plan Assessment and Plan (1) Elbow pain: (2) Olecranon bursitis, right elbow: ?Status:?Acute ?Plan: 41-year-old man with a right olecranon bursitis and osteophyte with soft tissue calcification in that area as well.? This really bothers him a lot especially with leaning on the elbow he has to work at a desk.? He has been trying offloading techniques.? He does not want to try cortisone injection in that area nor do I think this will completely resolve the problem which I think is due to the osteophyte in that area pushing on the soft tissues mostly.? There is no sign of any other active issue or tendinitis in this area.? We discussed about right olecranon debridement (removal of the osteophyte) and bursectomy.? We discussed the pros and cons risks and benefits of this he would wish to go ahead with that.? He had no further questions or concerns. Pros and cons risks and benefits were discussed with the patient including but not limited to infection, pain, stiffness, bleeding, damage to surrounding structures, tendon rupture, need to split the tendon, continued pain or inadequate relief of symptoms, recurrence of the bursitis, neurovascular injury, recurrence or retear, failure or wear of hardware or fixation, instability, fracture, deep vein thrombosis and pulmonary embolism, anesthetic risks, patient dissatisfaction, need for further surgery and other risks.? Patient understood and wished to proceed with surgery, and signed the informed consent documentation. [facility] Medical History (Updated 01/30/22 @ 14:24 by Liz Conway) Abdominal pain Arthritis Axillary lymphadenitis Back pain Bilateral varicoceles Heartburn History of back problems Inguinal hernia of left side without obstruction or gangrene Injury of head and neck Mass of left axilla Olecranon bursitis, right elbow Open wound Umbilical hernia without obstruction or gangrene Home Medications hydrocodone-acetaminophen 5-325mg 5mg-325mg 1 tab PO Q6H PRN pain 3 days #10 tabs 01/28/22 [Rx Last Taken Unknown] ondansetron 4 mg disintegrating tablet 4 mg PO Q8H PRN nausea and vomiting #6 tabs 01/28/22 [Rx Last Taken Unknown] Allergy/AdvReac Type Severity Reaction Status Date / Time No Known Allergies Allergy Verified 02/06/22 11:37 Family History Mother Asthma Father Diabetes Surgical History (Updated 01/30/22 @ 14:24 by Liz Conway) history o axillary biopsy (~04/2020) History of spinal surgery Hx of inguinal hernia repair Social History Smoking Status: Never smoker Vital Signs Vital Signs Vital Signs: 02/06/22 11:38 02/06/22 11:38 Temperature 97.5 F L Temperature Source Temporal Pulse Rate 72 Respiratory Rate 16 Respiratory Pattern Normal Blood Pressure 129/82 H Blood Pressure Mean 97 Blood Pressure Source Monitor Blood Pressure Position Semi-Fowlers Blood Pressure Location Left Arm Pulse Ox 98 Oxygen Delivery Method Room Air Weight Weight: 200 lb 9.93 oz Body Mass Index (BMI) 31.4
[2022-02-06] MEDS: Cefazolin 2 GM in 0.9% Normal Saline 100 ML IV (13:14)
--- NOTE | 2022-02-06 13:14 | RAD_ITS ---
EXAM: XR RIGHT ELBOW, 1 VIEW CLINICAL INDICATION: DEBRIDEMENT AND BURSECTOMY TECHNIQUE: Frontal and/or lateral views of the right elbow. This report was created using [employer] report generation technology. COMPARISON: 12/10/2021 FINDINGS: See Impression RAD/Elbow 2 Views IMPRESSION: Single intraoperative lateral image of the right elbow. No acute or healing fracture or malalignment. Joint spaces are maintained on limited assessment. No radiopaque foreign bodies. Electronically Signed: Gabriel Napier MD at 0:39 EDT ,
[2022-02-06 14:22] VITALS: BP 129/82; BP 144/98; PULSE 73; RESP 16; TEMP 36.9; O2SAT 97
--- NOTE | 2022-02-06 14:22 | PCM.OPRPT ---
Problems Associated Problem List Diagnoses (1) Olecranon bursitis, right elbow: Report of Operation Date of Procedure: 02/06/22 Pre-Operative Diagnosis: right olecranon bursitis and osteophyte Post-Operative Diagnosis: same Surgery/Procedure Performed:: right elbow olecranon debridement and bursectomy Description of Surgical Findings:: osteophyte and bursitis Surgeon: Pepe Butt Type of Anesthesia: General and Local Anesthesiologist: Rolly Cummings Estimated Blood Loss (mL): 10 Description of Procedure: The patient was brought to the operating room theater placed supine on the operating room table. All bony prominences appropriately padded. 18 inch tourniquet applied to the right upper extremity appropriately padded. General anesthesia induced. 2 g of IV Ancef administered prior to the start of the case. Right upper extremity prepped and draped in the usual sterile fashion with chlorhexidine-based prep solution allowing over 3 minutes drying time prior to draping. SCDs on the legs. Preoperative timeout performed to confirm the site patient in the surgery. I began by elevating the limb exsanguinating the limb with an Esmarch dressing. I inflated the tourniquet to 250 mmHg. I used a standard posterior incision approach to the proximal ulna at the olecranon curved this laterally around the tip of the olecranon. I dissected down through skin and subcutaneous tissue achieve meticulous hemostasis. I excised the bursa as well as a small amount of calcified tissue from the olecranon tip. I used a rongeur and rasp instruments as well as intraoperative fluoroscopy to ensure complete resection of the osteophyte and appropriate curved gentle contour of the proximal ulna. I had to elevate about 1 mm of the distal triceps to fully remove the osteophyte but over 95% of the triceps was left intact. There was 1 small calcified area of the distal triceps that I excised about a millimeter in size. Final radiographs were taken and saved onto the system. Tourniquet let down. Wound thoroughly irrigated. No repair was needed of the triceps. I closed the subcutaneous tissue with 2-0 Vicryl suture and the skin with 3-0 Monocryl. 6 cc of quarter percent Marcaine was used around the incision site in the subcutaneous tissue. Skin cleaned with wet and dry dressing followed application of Steri-Strips 4 x 4 gauze Adaptic and sterile Pierce bandage. A sling was placed on the right upper extremity. Patient woken up from the general anesthetic transferred off the operating room table and taken to postanesthetic care unit in stable condition. All sponge needle instrument counts were correct no complications. Plan for the patient gentle immediate range of motion of the elbow follow-up in the office in 2 weeks time leave the bandage on until that point no elbow strengthening for 6 weeks after the surgery. Complications none Admit VTE Documentation VTE Present on Admission: No VTE Mechan Device Prophylaxis: SCD's VTE Pharm Prophylaxis ordered?: No Reason prophylaxis not ordered:: Treatment Not Indicated Procedures Musculoskeletal [id number]: Other Procedure See Report
--- NOTE | 2022-02-06 14:27 | DCINST_ITS ---
Discharge Instructions Diet Discharge Diet: No restrictions Activity Discharge Activity: May Not Shower Lifting Restrictions: gentle immediate range of motion of the elbow no strengthening Keep extremity elevated above heart level: Operative Extremity Dressing / Incision Call your doctor if your incision/area has: Continuous Slow Oozing, Sudden Increased Bleeding, Increased Pain/ Swelling, Increased Redness, Foul Smelling Discharge and Swelling at the incision site Remove Dressing in: leave in place till F/U Cleanse incision/area with: Do not get Incision Wet Follow Up Care Please Follow Up With: Pepe Butt MD When: 2 weeks Test Results: Test results from this visit will be discussed in further detail at your follow- up appointment, if applicable. Discharge Plan Admission Attending Provider: Pepe Butt Primary Care Provider: Jose Ramon Blancas Discharge Orders/Prescriptions Prescriptions: New oxycodone-acetaminophen [Endocet] 5-325 mg tablet 1 tab PO Q4H MDD 6 PRN (Reason: pain) 5 Days Qty: 20 0RF Discontinued hydrocodone-acetaminophen 5-325 mg tablet 1 tab PO Q6H PRN (Reason: pain) 3 Days Qty: 10 0RF No Action ondansetron 4 mg tablet,disintegrating 4 mg PO Q8H PRN (Reason: nausea and vomiting) Qty: 6 0RF Referrals / Follow Up: Jose Ramon Blancas MD [Primary Care Provider] - Pepe Butt MD [Med Staff - Active Staff] - Disposition Disposition (needs filled in before D/C Order can be placed): Home, Self Care
[2022-02-06 14:30] VITALS: BP 129/82; BP 137/85; PULSE 70; RESP 16; O2SAT 97
--- NOTE | 2022-02-06 14:33 | DCINST_ITS ---
Discharge Instructions Diet Discharge Diet: No restrictions Activity Keep extremity elevated above heart level: Operative Extremity Additional Activity Instructions:: gentle ROM only, no strengthening, sling PRN Dressing / Incision Call your doctor if your incision/area has: Continuous Slow Oozing, Sudden Increased Bleeding, Increased Pain/ Swelling, Increased Redness, Foul Smelling Discharge and Swelling at the incision site Cleanse incision/area with: Do not get Incision Wet Follow Up Care Please Follow Up With: Pepe Butt MD When: 2 weeks Test Results: Test results from this visit will be discussed in further detail at your follow- up appointment, if applicable. Discharge Plan Admission Attending Provider: Pepe Butt Primary Care Provider: Jose Ramon Blancas Discharge Orders/Prescriptions Prescriptions: New oxycodone-acetaminophen [Endocet] 5-325 mg tablet 1 tab PO Q4H MDD 6 PRN (Reason: pain) 5 Days Qty: 20 0RF Discontinued hydrocodone-acetaminophen 5-325 mg tablet 1 tab PO Q6H PRN (Reason: pain) 3 Days Qty: 10 0RF No Action ondansetron 4 mg tablet,disintegrating 4 mg PO Q8H PRN (Reason: nausea and vomiting) Qty: 6 0RF Referrals / Follow Up: Jose Ramon Blancas MD [Primary Care Provider] - Pepe Butt MD [Med Staff - Active Staff] - Disposition Disposition (needs filled in before D/C Order can be placed): Home, Self Care
[2022-02-06 14:45] VITALS: BP 129/82; BP 134/91; PULSE 70; RESP 16; TEMP 36.2; O2SAT 98
[2022-02-06 15:12] VITALS: BP 129/82
[2022-02-06 15:21] VITALS: BP 129/82; BP 131/88; PULSE 70; RESP 16; TEMP 36.6; O2SAT 97
== END 2022-02-06 15:23 | disposition home or self-care (01) ==
LOC: SDC 11:03 → AC 11:04
PROVIDERS: PCP Family Medicine; Referring Provider Orthopaedic Surgery Sports Medicine; Visit Provider Orthopaedic Surgery Sports Medicine
PROC: 0MB40ZZ Excision of Left Elbow Bursa and Ligament, Open Approach (ICD-10-PCS; CPT 24105; principal; 2022-02-06 12:25)
DX: M70.21 Olecranon bursitis, right elbow (principal)
CPT/HCPCS: 24105; 01710; 73070; 76000; J7120; J2405

== ENCOUNTER 2022-03-05 12:21 | Emergency (ER) | payer OTHER, SELFPAY ==
[2022-03-05 12:22] VITALS: BP 124/101; PULSE 78; RESP 18; TEMP 36.4; O2SAT 97; BMI 32.3
--- NOTE | 2022-03-05 13:01 | EX.ED.VIS.UR ---
HPI HPI - URI History of Present Illness Chief Complaint: Cough Detail of Chief Complaint: For months Informant: patient Onset/Context/Timing Onset: Month(s) Context: Gradual Onset Timing: Intermittent Current Severity: Mild Maximum Severity: Mild Associated Symptoms Associated Symptoms: Positive for Nonproductive cough Narrative Narrative: 41-year-old male has had a nonproductive cough intermittent for months. He had a hernia repair 1 month ago and is concerned he is going to reinjure that area and cause his hernia to return. He denies any nausea, vomiting or diarrhea. No fever. He is not short of breath. Prior similar symptoms: Yes Recent Illness/Hospitalization: No ROS ROS ED ROS Narrative Nonproductive cough. Review of Systems ROS Unobtainable: Denies due to encephalopathy Constitutional Constitutional ED: Denies chills or fever(s) Eyes Eyes: Denies blurry vision ENT ENT ED: Denies ear pain Cardiovascular Cardiovascular: Denies chest pain or orthopnea Respiratory/Chest Respiratory/Chest: Reports cough; Denies dyspnea, dyspnea on exertion or orthopnea Gastrointestinal Gastrointestinal: Denies abdominal pain or constipation Genitourinary Genitourinary ED: Denies dysuria or hematuria Musculoskeletal Musculoskeletal: Denies arthralgias Integumentary Denies abscess Neurologic Neurologic: Denies headache(s) Psychiatric Psychiatric: Denies anxiety Endocrine Endocrinology: Denies cold intolerance Hematologic/Lymphatic Hematologic/Lymphatic: Denies easy bleeding Allergic/Immunologic Allergic/Immunologic ED: Denies mouth swelling or tongue swelling PFSH PFSH Medical History Abdominal pain Arthritis Axillary lymphadenitis Back pain Bilateral varicoceles Heartburn History of back problems Inguinal hernia of left side without obstruction or gangrene Injury of head and neck Mass of left axilla Olecranon bursitis, right elbow Open wound Umbilical hernia without obstruction or gangrene Home Medications ondansetron 4 mg disintegrating tablet 4 mg PO Q8H PRN nausea and vomiting #6 tabs 01/28/22 [Rx Last Taken Unknown] guaifenesin 100 mg/5 mL oral liquid (Cough Syrup) 200 mg (10 mL) PO Q4H PRN cough 5 days #150 mL 03/05/22 [Rx Last Taken Unknown] Allergy/AdvReac Type Severity Reaction Status Date / Time No Known Allergies Allergy Verified 11/08/22 12:22 Family History Mother Asthma Father Diabetes Surgical History history o axillary biopsy (~04/2020) History of spinal surgery Hx of inguinal hernia repair Social History Smoking Status: Never smoker EXAM Physical Exam Narrative Exam Narrative: 38-year-old male no acute distress vital signs stable afebrile. H EENT exam unremarkable. Posterior pharynx normal. Neck nontender no lymphadenopathy. Lungs clear to auscultation bilaterally. Heart regular rhythm no murmur. Abdomen soft nontender normal bowel sounds no peritoneal signs. Moving all 4 extremities. Nontender no edema. Neurologic exam normal. Const Vital Signs: 03/05/22 12:22 Temperature 97.5 F L Temperature Source Temporal Pulse Rate 78 Respiratory Rate 18 Blood Pressure 124/101 H Blood Pressure Mean 108 Pulse Ox 97 Oxygen Delivery Method Room Air Positive well nourished and well developed; Negative for cachectic or contractures General Appearance ED: well developed and NAD; Negative for cachectic, contractures, cyanotic, diaphoretic or pallor Nutritional Appearance: Negative for cachectic HEENT Reports moist mucous membranes; Denies dry mucous membranes normocephalic and atraumatic; Negative for scalp tenderness Face and Sinus: Negative for sinus tenderness Mouth ED: No dry mucous membranes Mouth: No dry mucous membranes Teeth and Gingiva: Negative for caries Throat: posterior oropharynx normal Eyes PERRL and EOMs intact bilaterally General Eye ED: Negative for pale conjunctiva or scleral icterus Neck no lymphadenopathy, supple, no meningeal signs and no JVD General: anterior neck swelling; Negative for lymphadenopathy Resp normal respiratory effort and clear to auscultation bilaterally Effort and Inspection: Negative for retractions Auscultation: Negative for rales, rhonchi or wheezes Cardio S1 normal heart sound, S2 normal heart sound and no murmurs Rate: regular rate; Negative for bradycardia or tachycardic Rhythm: regular rhythm GI non-tender, non-distended and no masses Inspection: Negative for abdominal distention Auscultation: normoactive bowel sounds Palpation: soft; Negative for tender Percussion: Negative for other Back/Spine no CVA tenderness and normal ROM General Back: Negative for CVA tenderness Cervical Spine: Negative for cervical spine tenderness Thoracic Spine / Upper Back: Negative for thoracic spinal tenderness Lumbar Spine / Lower Back: Negative for lumbar spinal tenderness Sacrum: Negative for tenderness Extremity normal to inspection and full ROM General Extremety ED: Negative for cyanosis or tenderness General Extremity: Negative for cyanosis Neuro oriented x3, CN's II-XII intact bilaterally and no sensory deficits noted Sensorium / Orientation: alert, oriented to person, oriented to place and oriented to time; Negative for orientation impaired, lethargic or stuporous Motor Exam: strength 5/5 throughout Psych mental status grossly normal Appearance: Negative for other Attitude: No agitated Mood & Affect: Negative for depressed, anxious or tearful Skin Skin Narrative: Unremarkable. General Skin Exam: Negative for jaundice or pallor Lesions: no lesions Rashes: no rashes Trauma: Negative for abrasion MDM MDM MDM Narrative Medical decision making narrative: 41-year-old male with intermittent coughing spells. Exam benign. He will be written for a cough syrup. Discharge Plan Triage Chief Complaint: Cough Other Complaint: Abd Pain ED Provider: Sunny Hodges Dx/Rx/DC Orders Clinical Impression: Cough Instructions: ED Cough Chronic Uncertain Cause Adult Prescriptions: New guaifenesin [Cough Syrup] 100 mg/5 mL liquid 200 mg PO Q4H PRN (Reason: cough) 5 Days Qty: 150 0RF No Action ondansetron 4 mg tablet,disintegrating 4 mg PO Q8H PRN (Reason: nausea and vomiting) Qty: 6 0RF Primary Care Provider: Jose Ramon Blancas Referrals: Jose Ramon Blancas MD [Primary Care Provider] - 10-14 Days if not better Activity Restrictions/Additional Instructions: Cough syrup as needed. Follow-up with your doctor if not improving. Disposition Disposition: Home, Self Care
== END 2022-03-05 13:25 | disposition home or self-care (01) ==
PROVIDERS: Emergency Provider Emergency Medicine; PCP Family Medicine; Visit Provider Emergency Medicine
DX: R05.9 Cough, unspecified (principal); R10.9 Unspecified abdominal pain
CPT/HCPCS: 99283

== ENCOUNTER 2022-03-18 14:03 | Outpatient (RCR) | payer OTHER, SELFPAY ==
--- NOTE | 2022-03-18 15:25 | HP.PTEVAL ---
Patient's Visit Information SYLVIA AUSTIN is a 41 year old M referred to Physical Therapy by Dr. Pepe Butt MD with a diagnosis of R olecranon bursitis. Date of Evaluation: 03/18/22 Physical Therapist: Raul Allison PT, ATC - Visit Plan Frequency: 2-3x /Week Duration: 4-6 Weeks Plan: R elbow stretching, strengthening, ulnar nerve root stretching, UBE, and HEP - Subjective DOS: 02/06/22. Pt reports he was climbing on rocks when he fell and landed on his R elbow. Pt reports he suffered an avulsion fracture at his elbow. Pt notes he had to have surgery to clean out that area which had become full of calcium deposits. Pt notes the pain he had prior to surgery now is gone, but he is very limited with his R elbow region. Pt reports he has sleep difficulty at times because his arm will become numb if he sleeps with his arm bent. 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 Pt is R hand dominant. 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 Pt reports his goal is to be able to do the things on a daily basis that he could prior to his fall. Pt describes his pain as dull and notes it is very disabling when it is at its worst. 0/10 pain while sitting here in the clinic, 10/10 pain at worst. - Pain R elbow Pain Intensity (Out of 10): 0 Pain Intensity Range: 10 - Objective Neuro: B UE sensation is WNL to light touch. B bicipital reflex= 2/3. Palpation: Mild swelling on R olecranon process. Very tender to light touch. ROM: L elbow 0-135; R elbow 0-5-135. MMT: L elbow flex= 31, ext= 41; R elbow flex= 34, ext= 7 #F. Girth at olecranon process: L elbow 28 cm, R elbow is 30 cm - Balance/Special Test Scores Quick DASH Score: 50.0000 - Goals Goal 1:: Decrease R elbow pain x 50% to aid with sleep Goal Time Frame: 4-6 Weeks Goal 2:: Increase R elbow ext ROM x 4 degrees to aid with IADL's Goal Time Frame: 4-6 Weeks Goal 3:: Increase R elbow extension strength x 15 #F to aid with work requirements Goal Time Frame: 4-6 Weeks Goal 4:: I with HEP Goal Time Frame: 4-6 Weeks - Rehabilitation Potential Physical Therapy Diagnosis: Pt has R elbow pain, weakness, and limited ROM secondary to R elbow olecranon bursitis Rehabilitation Potential: Good - Anticipated Interventions Patient/Client Instruction: Educate patient on: Condition, Plan of Care For the Purpose of:: To improve self management Therapeutic Exercise to Include: Strength training, Endurance training, Flexibilty training, Active ROM, Scapular Strength/Stabilization For the Purpose of:: To decrease pain, To increase ROM, To improve muscle performance and motor function Cryotherapy (ice pack, ice massage): Yes For the Purpose of:: To decrease pain Thank you for the opportunity to evaluate your patient. For Medicare and Medicare HMO plans, please review the plan of care and approve it. It will need to be FAXED BACK to us at [phone] for Medicare purposes. For Medicare only, by signing this I certify the plan of care. Please let me know if there are questions or concerns regarding this plan of care. Physician Signature: Date:
--- NOTE | 2022-08-16 09:37 | HP.PT.NRP ---
SYLVIA AUSTIN was seen in my office for initial evaluation on 03/18/22. The following Plan of Care was established for this patient: Initial Frequency: 2-3x /Week Initial Duration: 4-6 Weeks Patient/Client Instruction: Educate patient on: Condition, Plan of Care For the Purpose of:: To improve self management Therapeutic Exercise to Include: Strength training, Endurance training, Flexibilty training, Active ROM, Scapular Strength/Stabilization For the Purpose of:: To decrease pain, To increase ROM, To improve muscle performance and motor function Cryotherapy (ice pack, ice massage): Yes For the Purpose of:: To decrease pain This patient was last seen in our office . Pertinent comments regarding their Physical therapy will appear below: Pt was evaluated for elbow pain on the date of 03/18/22. Pt has not returned through todays date and is discontinued at this time. At this point I will be discontinuing this patient from physical therapy. I would be happy to see this patient again in the future if found appropriate by the physician. Thank you! Raul Allison, PT, ATC Balance/Gait/Functional tests - Balance/Special Test Scores Quick DASH Score: 50.0000
== END 2022-03-18 19:00 | disposition home or self-care (01) ==
LOC: PT 14:03
PROVIDERS: PCP Family Medicine; Referring Provider Orthopaedic Surgery Sports Medicine; Visit Provider Orthopaedic Surgery Sports Medicine
DX: M70.21 Olecranon bursitis, right elbow (principal)
CPT/HCPCS: 97110; 97161

== ENCOUNTER 2022-03-25 15:56 | Outpatient (CLI) | payer OTHER, SELFPAY ==
--- NOTE | 2022-03-25 16:08 | RAD_ITS ---
STUDY: X-RAY - RIGHT ELBOW REASON FOR EXAM: Male, 41 years old. Swelling. History of surgery 7 weeks ago. Pain. TECHNIQUE: 3 view(s) of the elbow. COMPARISON: Right elbow, February 06, 2022 and December 10, 2021.. FINDINGS: Normal visualized humerus, radius and ulna. Normal radiocapitellar and ulnotrochlear articulations. There is minimal soft tissue swelling over the posterior aspect of the elbow. Question faint densities in the soft tissues posterior to the olecranon. The large enthesophyte seen on the December 10, 2021 study is absent. RAD/Elbow min 3 Views IMPRESSION: Mild soft tissue swelling over the posterior elbow with question of small associated bony fragments Electronically Signed: Addison Arroyo DO at 17:48 EST ,
[2022-03-25 18:07] LABS: Anion Gap 7 (5-15); BUN 14 mg/dL (7-18); Calcium,Total 8.5 mg/dL (8.5-10.1); Chloride 105 mmol/L (98-107); Creatinine, Serum 1.08 mg/dL (0.70-1.30); EST Glomerular Filtration Rate 79 mL/min (>60); Est Glom Filt Rate - Afr Amer 96 mL/min (>60); Free T3 2.9 pg/mL (2.18-3.98); Glucose 106 mg/dL (74-106); Sodium Level 139 mmol/L (136-145); Thyroid Stim Hormone (TSH) 1.46 uIU/mL (0.358-3.74)
== END 2022-03-25 23:59 | disposition home or self-care (01) ==
PROVIDERS: PCP Family Medicine; Referring Provider Family Medicine; Visit Provider Family Medicine
DX: E04.9 Nontoxic goiter, unspecified (principal); M25.521 Pain in right elbow
CPT/HCPCS: 36415; 73080; 80048; 84439; 84443; 84481

== ENCOUNTER 2022-04-02 14:34 | Outpatient (CLI) | payer OTHER, SELFPAY ==
--- NOTE | 2022-04-02 14:37 | US_ITS ---
EXAM: US SOFT TISSUES HEAD AND NECK, THYROID CLINICAL INDICATION: THYROID ENLARGEMENT TECHNIQUE: Berger scale and color doppler imaging was performed of the thyroid gland. This report was created using [employer] report generation technology. COMPARISON: None. FINDINGS: LEFT THYROID LOBE: Left thyroid lobe measures 3.9 x 1.2 x 1.3 cm. Normal echogenicity. No nodules. RIGHT THYROID LOBE: Right thyroid lobe measures 4.3 x 1.3 x 1.5 cm. Normal echogenicity. No nodules. ISTHMUS: The isthmus measures 3 mm in AP dimension. No thyroid nodules are present. LYMPH NODES: Small bilateral cervical lymph nodes noted with normal internal architecture measuring 1.3 cm and less in diameter consistent with reactive change. US/Thyroid IMPRESSION: 1. No thyroid abnormality. 2. Small reactive cervical lymph nodes. Electronically Signed: Fede Mejía MD at 16:24 EST ,
== END 2022-04-02 23:59 | disposition home or self-care (01) ==
LOC: US 14:36
PROVIDERS: PCP Family Medicine; Referring Provider Family Medicine; Visit Provider Family Medicine
DX: E04.9 Nontoxic goiter, unspecified (principal)
CPT/HCPCS: 76536

== ENCOUNTER 2023-06-21 11:34 | Emergency (ER) | payer OTHER, SELFPAY ==
[2023-06-21 11:35] VITALS: BP 132/84; PULSE 98; RESP 16; TEMP 36.3; O2SAT 99; BMI 32.2
--- NOTE | 2023-06-21 11:46 | EDS_ITS ---
HPI <EDWIN Belle - Last Filed: 06/21/23 12:47> History of Present Illness Chief Complaint: Shortness of Breath Narrative Narrative: 42-year-old male has been ill for 4 days with loss of taste and smell, congestion, cough and body aches. 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 One of them was ill and had a positive home COVID test but then when the coworker went to the hospital he tested negative. Patient states he supposed to go home today but his is and he would like to see if he has COVID. The fits of coughing have also flared up his chronic sciatica. He is taking ibuprofen. He denies fever, chills, chest pain or shortness of breath. He does not smoke. PFSH <EDWIN Belle - Last Filed: 06/21/23 12:47> [facility] Medical History Abdominal pain Arthritis Axillary lymphadenitis Back pain Bilateral varicoceles Heartburn History of back problems Inguinal hernia of left side without obstruction or gangrene Injury of head and neck Mass of left axilla Olecranon bursitis, right elbow Open wound Umbilical hernia without obstruction or gangrene Home Medications ondansetron 4 mg disintegrating tablet 4 mg PO Q8H PRN nausea and vomiting #6 tabs 01/28/22 [Rx Last Taken Unknown] guaifenesin 100 mg/5 mL oral liquid (Cough Syrup) 200 mg (10 mL) PO Q4H PRN cough 5 days #150 mL 03/05/22 [Rx Last Taken Unknown] methylprednisolone 4 mg tablets in a dose pack (Medrol ([facility])) 4 mg PO DAILY #21 tabs 06/21/23 [Rx Last Taken Unknown] Allergy/AdvReac Type Severity Reaction Status Date / Time No Known Allergies Allergy Verified 06/21/23 11:35 Family History Mother Asthma Father Diabetes Surgical History history o axillary biopsy (~04/2020) History of spinal surgery Hx of inguinal hernia repair Social History Smoking Status: Never smoker ROS <EDWIN Belle - Last Filed: 06/21/23 12:47> ROS ED ROS Narrative Constitutional: Negative for fever, chills. ENT: Positive for rhinorrhea. Respiratory: Positive for cough. Negative for shortness of breath. GI: Negative for abdominal pain, nausea, vomiting, diarrhea. EXAM <EDWIN Belle - Last Filed: 06/21/23 12:47> Physical Exam Narrative Exam Narrative: CONST: Patient sitting in no acute distress. EYES: Normal inspection. ENT: Normal inspection, moist mucous membranes. NECK: Normal inspection. RESP: No respiratory distress, CTAB. CVS: Regular rate and rhythm, no murmur, no gallop. SKIN: Color normal, no rash, warm, dry, intact. EXTREMITIES: Normal appearance, no pedal edema. NEURO: Oriented x4. PSYCH: Normal affect. Const Vital Signs: 06/21/23 11:35 06/21/23 11:53 06/21/23 12:53 Temperature 97.4 F L 98.2 F Temperature Source Temporal Pulse Rate 98 68 Respiratory Rate 16 15 Respiratory Effort Normal Non-Labored Respiratory Depth Normal Respiratory Pattern Normal Blood Pressure 132/84 H 130/77 H Blood Pressure Mean 100 94 Pulse Ox 99 100 Oxygen Delivery Method Room Air <Andrew Thomas MD - Last Filed: 06/21/23 15:15> Physical Exam Const Vital Signs: 06/21/23 11:35 06/21/23 11:53 06/21/23 12:53 Temperature 97.4 F L 98.2 F Temperature Source Temporal Pulse Rate 98 68 Respiratory Rate 16 15 Respiratory Effort Normal Non-Labored Respiratory Depth Normal Respiratory Pattern Normal Blood Pressure 132/84 H 130/77 H Blood Pressure Mean 100 94 Pulse Ox 99 100 Oxygen Delivery Method Room Air MDM <EDWIN Belle - Last Filed: 06/21/23 12:47> MDM MDM Narrative Medical decision making narrative: Patient has flulike symptoms x 4 days. He is also worsening his chronic bilateral sciatica. He appears ill but nontoxic and is afebrile with normal vital signs. His exam is benign. He denies shortness of breath and is clear lung sounds so there is no indication for CXR. He tested positive for influenza B?he is out of the window for Tamiflu. I discussed symptomatic management and prescribed a Medrol Dosepak for his back. He was also given Toradol IM in the ED. Patient comfortable with this plan and was discharged in stable condition. Differential: COVID, flu, viral illness <Andrew Thomas MD - Last Filed: 06/21/23 15:15> [facility] Narrative Medical decision making narrative: Patient has flulike symptoms x 4 days. He is also worsening his chronic bilateral sciatica. He appears ill but nontoxic and is afebrile with normal vital signs. His exam is benign. He denies shortness of breath and is clear lung sounds so there is no indication for CXR. He tested positive for influenza B?he is out of the window for Tamiflu. I discussed symptomatic management and prescribed a Medrol Dosepak for his back. He was also given Toradol IM in the ED. Patient comfortable with this plan and was discharged in stable condition. Differential: COVID, flu, viral illness Dr. Thomas: I have personally performed a face to face assessment of the patient and have reviewed the NORMA Note. I performed a substantive portion of the visit including all aspects of the following. My damian findings include: History is cough and upper respiratory infection x 5 days, coughing aggravating chronic history of sciatica. Exposed to COVID. Exam is afebrile. Vital signs noted. Regular rate and rhythm. Lungs clear to auscultation bilaterally. Dry cough on examination. Abdomen soft and nontender. Neurovascular intact bilateral lower extremities. Medical Decision Making: Check respiratory swabs. Positive for influenza A. Given Medrol Dosepak for sciatica which may also alleviate his upper respiratory infection symptoms/cough. Discharge. Other additions or changes: [None] Discharge Plan Triage Chief Complaint: Shortness of Breath ED Midlevel Provider: Gaby Sanchez ED Provider: Andrew Thomas Dx/Rx/DC Orders Clinical Impression: Influenza B, Sciatica Instructions: ED Influenza (Adult) Prescriptions: New methylprednisolone [Medrol ([facility])] 4 mg tablets,dose pack 4 mg PO DAILY Qty: 21 0RF No Action ondansetron 4 mg tablet,disintegrating 4 mg PO Q8H PRN (Reason: nausea and vomiting) Qty: 6 0RF guaifenesin [Cough Syrup] 100 mg/5 mL liquid 200 mg PO Q4H PRN (Reason: cough) 5 Days Qty: 150 0RF Primary Care Provider: Jose Ramon Blancas Referrals: Jose Ramon Blancas MD [Primary Care Provider] - Activity Restrictions/Additional Instructions: You tested positive for influenza B. Rest, drink plenty of fluids, take Tylenol Motrin as needed. I prescribed a Medrol Dosepak to help your sciatica. Disposition Disposition: Home, Self Care Discharge Date/Time: 06/21/23 12:55
[2023-06-21 11:53] VITALS: O2SAT 97
[2023-06-21] MEDS: Ketorolac 30 MG/ML Syringe IM (12:02)
[2023-06-21 12:53] VITALS: BP 130/77; PULSE 68; RESP 15; TEMP 36.8; O2SAT 100
== END 2023-06-21 12:55 | disposition home or self-care (01) ==
PROVIDERS: Emergency Provider Emergency Medicine; PCP Family Medicine; Visit Provider Emergency Medicine
DX: J10.1 Influenza due to other identified influenza virus with other respiratory manifestations (principal); M54.30 Sciatica, unspecified side
CPT/HCPCS: 87631; 96372; 99282

== ENCOUNTER → 2023-07-09 | Outpatient (CLI) | payer OTHER, SELFPAY ==
--- NOTE | 2023-07-09 17:45 | RAD_ITS ---
STUDY: X-RAY - LUMBAR SPINE REASON FOR EXAM: Male, 42 years old. PAIN TECHNIQUE: 3 view(s) of the lumbar spine were obtained. COMPARISON: None FINDINGS: Normal lumbar lordosis. There is no substantial scoliosis. There is a normal alignment of the vertebrae. Status post laminectomy at L3-L5 are normal vertebral bodies with minimal spurring at the endplates. Normal disc space heights. The soft tissue structures are unremarkable. RAD/Lumbar Spine 2 or 3 Views IMPRESSION: Degenerative and postsurgical changes of the lumbar spine. Electronically Signed: Dimas Golden DO at 17:02 EDT Reading Location ID and State: [facility] / [place] Tel [phone], Service support ,
== END | disposition home or self-care (01) ==
LOC: RAD 17:42
PROVIDERS: PCP Family Medicine; Referring Provider Anesthesiology Pain Medicine; Visit Provider Anesthesiology Pain Medicine
DX: M96.1 Postlaminectomy syndrome, not elsewhere classified (principal)
CPT/HCPCS: 72100

== ENCOUNTER → 2024-07-27 | Outpatient (CLI) | payer OTHER, SELFPAY ==
--- NOTE | 2024-07-27 09:24 | RAD_ITS ---
PROCEDURE: CERV SPINE 4 OR 5 VIEWS 07/27/2024 REASON FOR EXAM: NECK INJURY TECHNIQUE: 6 views of the cervical spine. AP, lateral, bilateral oblique, swimmer's and open-mouth odontoid COMPARISON: None available FINDINGS: The cervical spine is visualized on the lateral view from the skull base to C7. The inferior aspect of C7 and C7-T1 disc space is not well seen. This also is not well seen on the swimmer's view. Otherwise no fracture or malalignment identified. The disc spaces appear within limits. Straightening may represent positioning or spasm. No prevertebral soft tissue swelling. Anterior inferior corner osteophyte formation C5 and C6. Suggestion of asymmetric right uncovertebral hypertrophic change resulting in possible right foraminal narrowing at C7-T1 on the oblique view. The tip of the odontoid overlaps with the teeth and skull base. The lateral masses appear within limits. RAD/Cerv Spine 4 or 5 Views IMPRESSION: The cervical spine is visualized on the lateral view from the skull base to C7. The inferior aspect of C7 and C7-T1 disc space is not well seen. This also is not well seen on the swimmer's view. Otherwise no fracture or malalignment identified. The disc spaces appear within limits. Suggestion of asymmetric right uncovertebral hypertrophic change resulting in p ossible right foraminal narrowing at C7-T1 on the oblique view. Reading Location: [id number]
[2024-07-27 12:28] LABS: Absolute Lymphocyte Count 1.82 X10^3/uL (0.83-4.51); Absolute Neutrophil Count 4.1 X10^3/uL (2.0-7.7); Basophil# 0.09 X10^3/uL; Basophil% 1.3 % (0-1); Eosinophil# 0.23 X10^3/uL; Eosinophils% 3.3 % (0-5); Hematocrit 44.9 % (40-54); Hemoglobin 15.5 g/dL (13.0-16.5); Lymphocyte # 1.82 X10^3/ul (0.83-4.51); Lymphocyte % 25.9 % (19-41); Mean Corp Hgb Conc 34.5 g/dL (32-36); Mean Corpuscular Hgb 29.4 pg (27.0-32.0); Mean Corpuscular Volume 85.2 fL (80-94); Mean Platelet Vol. 10.1 fl (6.2-12.0); Monocyte# 0.71 X10^3/uL; Monocyte% 10.1 % (0-10); NRBC Flagged by Analyzer 0 % (0-5); Neutrophil # 4.12 X10^3/uL (2.7-7.7); Neutrophil % 58.4 % (47-70); POSITIVE COUNT YES; Platelet Count 213 K/mm3 (150-450); RBC Distribution Width CV 12.7 % (11.6-14.6); RBC Distribution Width SD 39.1 fl (35.1-43.9); Red Blood Count 5.27 M/mm3 (4.6-6.2)
[2024-07-27 12:53] LABS: Differential Indicated SCAN CRITERIA MET
[2024-07-27 12:54] LABS: Differential Comment SCANNED; Platelet Estimate ADEQUATE (ADEQ)
[2024-07-27 13:04] LABS: ALB/GLOB Ratio 1.5 RATIO (0.9-2.4); AST(SGOT) 34 U/L (<=37); Alanine Aminotransfer ALT/SGPT 68 U/L (<=46); Albumin, Serum 4.3 g/dL (3.5-5.0); Alkaline Phosphatase 51 U/L (40-129); Anion Gap 11 (5-15); BUN 11 mg/dL (4-19); Calcium,Total 9.1 mg/dL (7.6-11.0); Carbon Dioxide 23.6 mmol/L (21.0-32.0); Chloride 107 mmol/L (98-108); Cholesterol 191 mg/dL (<=200); Creatinine, Serum 1.17 mg/dL (0.70-1.20); EST Glomerular Filtration Rate 78 (>60); Globulin 2.8 g/dL (2.2-4.2); Glucose 106 mg/dL (70-99); High Density Lipoprotein 35 mg/dL; Low Density Lipoprotein Calc. 120 mg/dL; Sodium Level 142 mmol/L (133-145); Total Bilirubin 0.77 mg/dL (0.00-1.30); Triglycerides 181 mg/dL; Very Low Density Lipoprotein 36 mg/dL (5-40); cholesterol:hdl ratio screen 5.46
== END | disposition home or self-care (01) ==
LOC: MTLAB 09:24
PROVIDERS: PCP Family Medicine; Referring Provider Family Medicine; Visit Provider Family Medicine
DX: Z00.00 Encounter for general adult medical examination without abnormal findings (principal); M54.2 Cervicalgia; E78.9 Disorder of lipoprotein metabolism, unspecified; E04.9 Nontoxic goiter, unspecified; Z13.1 Encounter for screening for diabetes mellitus
CPT/HCPCS: 36415; 72050; 80053; 80061; 84443; 85025

== ENCOUNTER → 2024-09-22 | Outpatient (CLI) | payer OTHER, SELFPAY ==
--- NOTE | 2024-09-22 12:06 | MRI_ITS ---
PROCEDURE: SPINE CERVICAL (ROUTINE) 09/22/2024 REASON FOR EXAM: PAIN TECHNIQUE: Multiplanar and multisequence images were obtained without IV contrast administration. COMPARISON: 07/27/2024 and 08/13/2024 radiographs. FINDINGS: Vertebrae: Cervical vertebral body heights are preserved. Bone marrow signal is unremarkable. Alignment: Normal. No spondylolisthesis. Spinal Cord: Cervical spinal cord is of normal size and signal intensities. Structures at the foramen magnum are unremarkable. C2-3: Unremarkable C3-4: Unremarkable C4-5: Minimal disc bulging without significant central or neural foraminal stenosis. C5-6: Minimal disc bulging without significant central or neural foraminal stenosis. C6-7: Minimal disc bulging without significant central or neural foraminal stenosis. C7-T1: Unremarkable MRI/Spine Cervical (Routine) IMPRESSION: No compressive central or neural foraminal stenosis. Reading Location: [place] [id number]
== END | disposition home or self-care (01) ==
PROVIDERS: PCP Family Medicine; Referring Provider Student in an Organized Health Care Education/Training Program; Visit Provider Student in an Organized Health Care Education/Training Program
DX: M47.812 Spondylosis without myelopathy or radiculopathy, cervical region (principal); M54.2 Cervicalgia
CPT/HCPCS: 72141

== ENCOUNTER → 2025-02-28 | Outpatient (CLI) | payer OTHER, SELFPAY ==
--- NOTE | 2025-02-28 16:22 | RAD_ITS ---
EXAM: XR Right Foot Complete, 3 or More Views CLINICAL INDICATION: RIGHT FOOT PAIN, NEAR ANKLE TECHNIQUE: Frontal, lateral and oblique views of the right foot. COMPARISON: No relevant prior studies available. FINDINGS: BONES/JOINTS: Mild degenerative change of the intertarsal joint. No acute fracture. No dislocation. SOFT TISSUES: Soft tissue swelling. RAD/Foot min 3 Views IMPRESSION: Soft tissue swelling. Reading Location: [facility]
== END | disposition home or self-care (01) ==
LOC: MTRAD 16:22
PROVIDERS: PCP Family Medicine; Referring Provider Family Medicine; Visit Provider Family Medicine
DX: M79.671 Pain in right foot (principal)
CPT/HCPCS: 73630

== ENCOUNTER → 2025-03-10 | Outpatient (CLI) | payer OTHER, SELFPAY ==
--- NOTE | 2025-03-10 15:35 | RAD_ITS ---
PROCEDURE: TIBIA FIBULA 2 VIEWS 03/10/2025 REASON FOR EXAM: STINGRAY STING TECHNIQUE: Procedure Code: RDF Modality: DX Procedure: TIBIA FIBULA 2 VIEWS Laterality: Left COMPARISON: None FINDINGS: Bones: No fractures or dislocations are noted. There is normal mineralization of the osseous structures. Joints: Left knee and left ankle joint spaces are well preserved. Soft tissues: There is a radiopaque wrap overlying of the distal tibia and fibula. There does appear to be some soft tissue swelling in this location. Other: No radiopaque foreign body is noted. RAD/Tibia & Fibula 2 Views IMPRESSION: Soft tissue swelling distal left tibia and fibula region. Reading Location: [facility]
== END | disposition home or self-care (01) ==
LOC: RAD 15:27
PROVIDERS: PCP Family Medicine; Referring Provider Surgery; Visit Provider Surgery
DX: S80.922A Unspecified superficial injury of left lower leg, initial encounter (principal); W56.52XA Struck by other fish, initial encounter
CPT/HCPCS: 73590

== ENCOUNTER 2025-03-22 13:15 | Outpatient (RCR) | payer OTHER, SELFPAY ==
[2025-03-08 13:10] VITALS: BP 138/96; RESP 16; TEMP 36.4; BMI 33.9
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
--- NOTE | 2025-03-09 08:52 | WC ---
PHOTO-L LAT LEG 03/08/25
[2025-03-15 13:08] VITALS: BP 124/76; PULSE 73; RESP 18; TEMP 36.1; BMI 33.9
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
--- NOTE | 2025-03-16 09:34 | WC ---
PHOTO-LEFT LEG 03/15/25
[2025-03-22 13:06] VITALS: BP 129/80; PULSE 83; RESP 16; TEMP 35.8; BMI 33.9
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
--- NOTE | 2025-03-23 11:10 | WC ---
PHOTO-LEFT LAT LE 03/22/25
== END 2025-03-27 23:59 | disposition home or self-care (01) ==
LOC: WC 13:15
PROVIDERS: PCP Family Medicine; Referring Provider Family Medicine; Visit Provider Surgery
DX: T63.514A Toxic effect of contact with stingray, undetermined, initial encounter (principal); Z98.890 Other specified postprocedural states; Y92.832 Beach as the place of occurrence of the external cause
CPT/HCPCS: 11042; 87070; 87075; 87077; 87186; 87205; 99213; G0463

== ENCOUNTER 2025-04-12 13:15 | Outpatient (RCR) | payer OTHER, SELFPAY ==
[2025-03-29 13:06] VITALS: BP 146/92; PULSE 75; RESP 16; TEMP 36.1
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
--- NOTE | 2025-03-30 08:48 | WC ---
PHOTO-LEFT LAT LE 03/29/25
[2025-04-05 13:08] VITALS: BP 145/98; PULSE 88; RESP 16; TEMP 35.8
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
--- NOTE | 2025-04-06 08:47 | WC ---
PHOTO-LEFT LATERAL 04/05/25
[2025-04-12 13:21] VITALS: BP 141/95; PULSE 60; RESP 18; TEMP 36.3
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
--- NOTE | 2025-04-13 09:17 | WC ---
PHOTO-LEFT LAT LE 04/12/25
== END 2025-04-27 14:12 | disposition home or self-care (01) ==
LOC: WC 13:15
PROVIDERS: PCP Family Medicine; Referring Provider Family Medicine; Visit Provider Surgery
DX: T63.514A Toxic effect of contact with stingray, undetermined, initial encounter (principal); Z98.890 Other specified postprocedural states
CPT/HCPCS: 11042; 99213; G0463